=== PATIENT | male | born 1930 | race Caucasian/White ===

== ENCOUNTER → 2017-02-15 | Outpatient (CLI) | payer MEDICARE | LOC: MW.CHPS 08:00 | PROVIDERS: ATTEND Plastic Surgery | DX: L57.0 Actinic keratosis (principal); L82.1 Other seborrheic keratosis; G20 Parkinson's disease | CPT/HCPCS: 17000; 17003; 99202 ==

== ENCOUNTER 2017-12-03 20:46 | Inpatient (IN) | payer MEDICARE ==
[2017-12-03] MEDS ORDERED: methylPREDNISolone Sodium Succinate 125 MG/2 ML SDV IVPUSH ONE (20:51)
[2017-12-03] MEDS ORDERED: Albuterol/Ipratropium 3.0-0.5 MG/3 ML Neb Soln NEB ONE (20:51)
[2017-12-03] MEDS ORDERED: Sodium Chloride 0.9% 1,000 ML IV ONE (20:51)
--- NOTE | 2017-12-03 20:54 | EDM.PDOC ---
<Lit Rivera - Last Filed: 12/03/17 21:46> ED HPI GENERAL MEDICAL PROBLEM - General Stated Complaint: UNK Time Seen by Provider: 12/03/17 20:54 - History of Present Illness INITIAL COMMENTS - FREE TEXT/NARRATIVE: I have seen and examined the patient above Patient vessel jail apparently being treated for influenza increased temperatures over the last few days developing altered mental status, over the last few days, patient was started on Temodar flu Danitza Coma Scale roughly 8 on arrival Agree with physical exam above Assessment Hypoxia Hypernatremia Dehydration Renal insufficiency Chronic history of baseline Plan Continue normal saline and admit, I have added urine osmolality as well as serum osmolality Course - Vital Signs Last Recorded V/S: Last Vital Signs Temp 97.8 F 12/03/17 20:57 Pulse 105 H 12/03/17 20:57 Resp 25 H 12/03/17 20:57 BP 129/75 12/03/17 20:57 Pulse Ox 88 L 12/03/17 20:57 - Orders/Labs/Meds Orders: Active Orders 24 hr Category Date Time Status EKG 12 Lead [EKG Documentation Completion] [RC] STAT Care 12/03/17 21:11 Active RT Aerosol Therapy [RC] ASDIRECTED Care 12/03/17 20:52 Active Chest 1V Frontal [CR] Stat Exams 12/03/17 20:51 Taken Head wo Cont [CT] Stat Exams 12/03/17 20:53 Taken B-TYPE NATRIURETIC PEPTIDE,BNP [CHEM] Stat Lab 12/03/17 21:01 Received CKMB [CHEM] Stat Lab 12/03/17 21:01 Received CREATINE KINASE,CK [CHEM] Stat Lab 12/03/17 21:01 Received CULTURE BLOOD [BC] Stat Lab 12/03/17 20:52 Ordered CULTURE BLOOD [BC] Stat Lab 12/03/17 21:01 Received DRUG SCREEN, URINE [URCHEM] Stat Lab 12/03/17 21:11 Uncollected INFLUENZA A+B AG SCREEN [RM] Stat Lab 12/03/17 20:51 Uncollected OSMOLALITY - SERUM [REF] Stat Lab 12/03/17 21:01 Received OSMOLALITY - URINE Stat Lab 12/03/17 21:43 Ordered UA W/MICROSCOPIC [URIN] Stat Lab 12/03/17 20:51 Uncollected Sodium Chloride 0.9% [Normal Saline] 1,000 ml Med 12/03/17 21:00 Active IV ASDIRECTED Blood Culture x2 Reflex Set [OM.PC] Stat Oth 12/03/17 20:51 Ordered Medication Orders Sodium Chloride (Normal Saline) 1,000 mls @ 100 mls/hr IV ASDIRECTED GODWIN Last Admin: 12/03/17 21:30 Dose: 100 mls/hr Labs: Laboratory Tests 12/03/17 12/03/17 12/03/17 Range/Units 21:01 21:01 21:01 WBC 11.66 H (4.0-11.0) K/uL RBC 4.87 (4.50-5.90) M/uL Hgb 15.4 (13.0-17.0) g/dL Hct 51.0 H (38.0-50.0) % MCV 104.7 H (80.0-98.0) fL MCH 31.6 (27.0-32.0) pg MCHC 30.2 L (31.0-37.0) g/dL RDW Std Deviation 54.6 (28.0-62.0) fl RDW Coeff of Danny 14 (11.0-15.0) % Plt Count 100 L (150-400) K/uL MPV 12.50 H (7.40-12.00) fL Neut % (Auto) 76.6 (48.0-80.0) % Lymph % (Auto) 16.6 (16.0-40.0) % Perry % (Auto) 5.6 (0.0-15.0) % Eos % (Auto) 1.0 (0.0-7.0) % Baso % (Auto) 0.2 (0.0-1.5) % Neut # (Auto) 8.9 H (1.4-5.7) K/uL Lymph # (Auto) 1.9 (0.6-2.4) K/uL Perry # (Auto) 0.7 (0.0-0.8) K/uL Eos # (Auto) 0.1 (0.0-0.7) K/uL Baso # (Auto) 0.0 (0.0-0.1) K/uL Nucleated RBC % 0.2 /100WBC Nucleated RBCs # 0 K/uL INR 1.03 ABG pH (7.35-7.45) ABG pCO2 (35-45) mmHG ABG pO2 (75-100) mmHG ABG HCO3 (22-26) mEq/L ABG Total CO2 ABG Base Excess (-2.0-2.0) Sodium 165 H* (136-146) mmol/L Potassium 4.3 (3.5-5.1) mmol/L Chloride 126 H (98-110) mmol/L Carbon Dioxide 23 (21-31) mmol/L BUN 50 H (6.0-23.0) mg/dL Creatinine 3.1 H (0.6-1.5) mg/dL Est Cr Clr Drug Dosing TNP Estimated GFR (MDRD) 19.1 ml/min Glucose 292 H (60-110) mg/dL Calcium 9.3 (8.8-10.8) mg/dL Total Bilirubin 1.1 (0.1-1.5) mg/dL AST 20 (5-40) IU/L ALT < 6 L (8-54) IU/L Alkaline Phosphatase 90 (40-150) Ammonia (14-68) UG/DL Troponin I 0.10 (0.0-0.29) NG/ML Total Protein 7.2 (6.0-8.0) g/dL Albumin 3.8 (3.4-4.8) g/dL Globulin 3.4 (2.0-3.5) g/dL Albumin/Globulin Ratio 1.1 L (1.3-2.8) Ethyl Alcohol mg/dL 12/03/17 12/03/17 12/03/17 Range/Units 21:01 21:01 21:25 WBC (4.0-11.0) K/uL RBC (4.50-5.90) M/uL Hgb (13.0-17.0) g/dL Hct (38.0-50.0) % MCV (80.0-98.0) fL MCH (27.0-32.0) pg MCHC (31.0-37.0) g/dL RDW Std Deviation (28.0-62.0) fl RDW Coeff of Danny (11.0-15.0) % Plt Count (150-400) K/uL MPV (7.40-12.00) fL Neut % (Auto) (48.0-80.0) % Lymph % (Auto) (16.0-40.0) % Perry % (Auto) (0.0-15.0) % Eos % (Auto) (0.0-7.0) % Baso % (Auto) (0.0-1.5) % Neut # (Auto) (1.4-5.7) K/uL Lymph # (Auto) (0.6-2.4) K/uL Perry # (Auto) (0.0-0.8) K/uL Eos # (Auto) (0.0-0.7) K/uL Baso # (Auto) (0.0-0.1) K/uL Nucleated RBC % /100WBC Nucleated RBCs # K/uL INR ABG pH 7.394 (7.35-7.45) ABG pCO2 43 (35-45) mmHG ABG pO2 63 L (75-100) mmHG ABG HCO3 26 (22-26) mEq/L ABG Total CO2 23.0 ABG Base Excess 1.0 (-2.0-2.0) Sodium (136-146) mmol/L Potassium (3.5-5.1) mmol/L Chloride (98-110) mmol/L Carbon Dioxide (21-31) mmol/L BUN (6.0-23.0) mg/dL Creatinine (0.6-1.5) mg/dL Est Cr Clr Drug Dosing Estimated GFR (MDRD) ml/min Glucose (60-110) mg/dL Calcium (8.8-10.8) mg/dL Total Bilirubin (0.1-1.5) mg/dL AST (5-40) IU/L ALT (8-54) IU/L Alkaline Phosphatase (40-150) Ammonia 63 (14-68) UG/DL Troponin I (0.0-0.29) NG/ML Total Protein (6.0-8.0) g/dL Albumin (3.4-4.8) g/dL Globulin (2.0-3.5) g/dL Albumin/Globulin Ratio (1.3-2.8) Ethyl Alcohol < 10.0 mg/dL Meds: Medications Generic Name Dose Route Start Last Admin Trade Name Freq PRN Reason Stop Dose Admin Sodium Chloride 1,000 mls @ 100 mls/hr 12/03/17 21:00 12/03/17 21:30 Normal Saline IV 100 mls/hr ASDIRECTED GODWIN Administration Discontinued Medications Generic Name Dose Route Start Last Admin Trade Name Kecia PRN Reason Stop Dose Admin Albuterol/Ipratropium 3 ml 12/03/17 20:51 12/03/17 21:33 Duoneb 3.0-0.5 Mg/3 Ml NEB 12/03/17 20:52 3 ml ONETIME ONE Administration Sodium Chloride 1,000 mls @ 999 mls/hr 12/03/17 20:51 Normal Saline IV 12/03/17 21:51 STAT ONE Methylprednisolone Sodium Succinate 125 mg 12/03/17 20:51 12/03/17 21:31 Solu-Medrol IVPUSH 12/03/17 20:52 125 mg ONETIME ONE Administration Departure - Departure Disposition: Admitted As Inpatient 65 Clinical Impression: Hypernatremia, Dehydration, Hypoxemia - Discharge Information Referrals: Nikhil Vásquez MD [Primary Care Provider] - - My Orders Last 24 Hours: My Active Orders 12/03/17 20:51 Chest 1V Frontal [CR] Stat INFLUENZA A+B AG SCREEN [RM] Stat UA W/MICROSCOPIC [URIN] Stat Blood Culture x2 Reflex Set [OM.PC] Stat 12/03/17 20:52 RT Aerosol Therapy [RC] ASDIRECTED CULTURE BLOOD [BC] Stat 12/03/17 20:53 Head wo Cont [CT] Stat 12/03/17 21:00 Sodium Chloride 0.9% [Normal Saline] 1,000 ml IV ASDIRECTED 12/03/17 21:01 B-TYPE NATRIURETIC PEPTIDE,BNP [CHEM] Stat CULTURE BLOOD [BC] Stat 12/03/17 21:11 EKG 12 Lead [EKG Documentation Completion] [RC] STAT DRUG SCREEN, URINE [URCHEM] Stat - Assessment/Plan Last 24 Hours: My Active Orders 12/03/17 20:51 Chest 1V Frontal [CR] Stat INFLUENZA A+B AG SCREEN [RM] Stat UA W/MICROSCOPIC [URIN] Stat Blood Culture x2 Reflex Set [OM.PC] Stat 12/03/17 20:52 RT Aerosol Therapy [RC] ASDIRECTED CULTURE BLOOD [BC] Stat 12/03/17 20:53 Head wo Cont [CT] Stat 12/03/17 21:00 Sodium Chloride 0.9% [Normal Saline] 1,000 ml IV ASDIRECTED 12/03/17 21:01 B-TYPE NATRIURETIC PEPTIDE,BNP [CHEM] Stat CULTURE BLOOD [BC] Stat 12/03/17 21:11 EKG 12 Lead [EKG Documentation Completion] [RC] STAT DRUG SCREEN, URINE [URCHEM] Stat <Chadd Diaz E - Last Filed: 12/03/17 21:55> ED HPI GENERAL MEDICAL PROBLEM - General Source of Information: Reports: Patient History Limitations: Reports: No Limitations - History of Present Illness INITIAL COMMENTS - FREE TEXT/NARRATIVE: HISTORY AND PHYSICAL: History of present illness: Patient is an 87-year-old male who presents to the emergency room with complaints of decreased level of responsiveness, fever, and low oxygen saturation. Per the jail report the patient has had poor oral intake, last voided at 6 AM this morning. Last reported bowel movement was 11/30/2017. He has had a temperature of 100F and did take Tylenol 325 mg by mouth at 1930. No reported falls. Upon EMS arrival the oxygen was 85% on room air. EMS gave him a albuterol treatment and supplemental oxygen (NRB at 15L) which brought his oxygen up to 95 %. Blood sugar was 260. GCS 6 (2,2,2). Patient has a past medical history of Alzheimer's disease, heard, dementia hypertension, elevated cholesterol, Parkinson's, and depression. There are no previous electronic records available on this patient. Patient is a code level II withholding defibrillation/cardioversion, chest compressions, ventilation by mask, ET tube, mechanical ventilation. Review of systems: As per history of present illness and below otherwise all systems reviewed and negative. Past medical history: As per history of present illness and as reviewed below otherwise noncontributory. Surgical history: As per history of present illness and as reviewed below otherwise noncontributory. Social history: No reported history of drug or alcohol abuse. Family history: As per history of present illness and as reviewed below otherwise noncontributory. Physical exam: General: Patient is resting with his eyes closed, does respond to painful stimuli. Unsure of baseline as there are no previous notes. HEENT: Atraumatic, normocephalic, pupils sluggish but reactive bilat, negative for conjunctival pallor or scleral icterus, mucous membranes moist, throat clear , neck supple, nontender, trachea midline. Lungs: Wheezing and rhonchi noted to bilat lung amezcua, breath sounds equal bilaterally, chest nontender. Loose wet cough noted. Heart: Irregularly regular. Abdomen: Soft, nondistended, grimaces with palpation to RLQ and LLQ. Hyperactive bowel sounds. Negative for masses or hepatosplenomegaly. Negative for costovertebral tenderness. Pelvis: Stable nontender. Genitourinary: Deferred. Rectal: Deferred. Extremities: Atraumatic, withdrawls with painful stimuli. Neurovascular unremarkable. Neuro: Awake, alert, oriented. Cranial nerves II through XII unremarkable. Cerebellum unremarkable. Motor and sensory unremarkable throughout. Exam nonfocal. No previous EKG to compare, sinus tachycardia with RBBB. Reviewed by Dr Ojeda. Patient going down to CT for stat scanning. Negative head CT and chest x-ray. Patient does have a sodium 165, WBC of 11.6, elevated BUNs/creatinine. Vital signs are stable. Dr. Bernstein was consulted on this case. He is agreeable to admit this patient for inpatient treatment. Patient will be placed on telemetry. Diagnostics: CBC, CMP, troponin, EKG, chest x-ray, head CT, blood cultures, UA, influenza Therapeutics: IV fluid, Solu-Medrol, DuoNeb, oxygen, athletic monitor Impression: 1. Hypoxemia 2. Hypernatremia 3. Dehydration Plan: Inpatient admission to [facility] with telemetry Definitive disposition and diagnosis as appropriate pending reevaluation and review of above. Duration: Hour(s): Location: Reports: Generalized ED ROS GENERAL - Review of Systems Review Of Systems: ROS reveals no pertinent complaints other than HPI. ED EXAM, GENERAL - Physical Exam Exam: See Below (See dictation) Course - Vital Signs Last Recorded V/S: Last Vital Signs Temp 97.8 F 12/03/17 20:57 Pulse 105 H 12/03/17 20:57 Resp 25 H 12/03/17 20:57 BP 129/75 12/03/17 20:57 Pulse Ox 88 L 12/03/17 20:57 - Orders/Labs/Meds Labs: Laboratory Tests 12/03/17 12/03/17 12/03/17 Range/Units 21:01 21:01 21:01 WBC 11.66 H (4.0-11.0) K/uL RBC 4.87 (4.50-5.90) M/uL Hgb 15.4 (13.0-17.0) g/dL Hct 51.0 H (38.0-50.0) % MCV 104.7 H (80.0-98.0) fL MCH 31.6 (27.0-32.0) pg MCHC 30.2 L (31.0-37.0) g/dL RDW Std Deviation 54.6 (28.0-62.0) fl RDW Coeff of Danny 14 (11.0-15.0) % Plt Count 100 L (150-400) K/uL MPV 12.50 H (7.40-12.00) fL Neut % (Auto) 76.6 (48.0-80.0) % Lymph % (Auto) 16.6 (16.0-40.0) % Perry % (Auto) 5.6 (0.0-15.0) % Eos % (Auto) 1.0 (0.0-7.0) % Baso % (Auto) 0.2 (0.0-1.5) % Neut # (Auto) 8.9 H (1.4-5.7) K/uL Lymph # (Auto) 1.9 (0.6-2.4) K/uL Perry # (Auto) 0.7 (0.0-0.8) K/uL Eos # (Auto) 0.1 (0.0-0.7) K/uL Baso # (Auto) 0.0 (0.0-0.1) K/uL Nucleated RBC % 0.2 /100WBC Nucleated RBCs # 0 K/uL INR 1.03 ABG pH (7.35-7.45) ABG pCO2 (35-45) mmHG ABG pO2 (75-100) mmHG ABG HCO3 (22-26) mEq/L ABG Total CO2 ABG Base Excess (-2.0-2.0) Sodium 165 H* (136-146) mmol/L Potassium 4.3 (3.5-5.1) mmol/L Chloride 126 H (98-110) mmol/L Carbon Dioxide 23 (21-31) mmol/L BUN 50 H (6.0-23.0) mg/dL Creatinine 3.1 H (0.6-1.5) mg/dL Est Cr Clr Drug Dosing TNP Estimated GFR (MDRD) 19.1 ml/min Glucose 292 H (60-110) mg/dL Calcium 9.3 (8.8-10.8) mg/dL Total Bilirubin 1.1 (0.1-1.5) mg/dL AST 20 (5-40) IU/L ALT < 6 L (8-54) IU/L Alkaline Phosphatase 90 (40-150) Ammonia (14-68) UG/DL Troponin I 0.10 (0.0-0.29) NG/ML Total Protein 7.2 (6.0-8.0) g/dL Albumin 3.8 (3.4-4.8) g/dL Globulin 3.4 (2.0-3.5) g/dL Albumin/Globulin Ratio 1.1 L (1.3-2.8) Ethyl Alcohol mg/dL 12/03/17 12/03/17 12/03/17 Range/Units 21:01 21:01 21:25 WBC (4.0-11.0) K/uL RBC (4.50-5.90) M/uL Hgb (13.0-17.0) g/dL Hct (38.0-50.0) % MCV (80.0-98.0) fL MCH (27.0-32.0) pg MCHC (31.0-37.0) g/dL RDW Std Deviation (28.0-62.0) fl RDW Coeff of Danny (11.0-15.0) % Plt Count (150-400) K/uL MPV (7.40-12.00) fL Neut % (Auto) (48.0-80.0) % Lymph % (Auto) (16.0-40.0) % Perry % (Auto) (0.0-15.0) % Eos % (Auto) (0.0-7.0) % Baso % (Auto) (0.0-1.5) % Neut # (Auto) (1.4-5.7) K/uL Lymph # (Auto) (0.6-2.4) K/uL Perry # (Auto) (0.0-0.8) K/uL Eos # (Auto) (0.0-0.7) K/uL Baso # (Auto) (0.0-0.1) K/uL Nucleated RBC % /100WBC Nucleated RBCs # K/uL INR ABG pH 7.394 (7.35-7.45) ABG pCO2 43 (35-45) mmHG ABG pO2 63 L (75-100) mmHG ABG HCO3 26 (22-26) mEq/L ABG Total CO2 23.0 ABG Base Excess 1.0 (-2.0-2.0) Sodium (136-146) mmol/L Potassium (3.5-5.1) mmol/L Chloride (98-110) mmol/L Carbon Dioxide (21-31) mmol/L BUN (6.0-23.0) mg/dL Creatinine (0.6-1.5) mg/dL Est Cr Clr Drug Dosing Estimated GFR (MDRD) ml/min Glucose (60-110) mg/dL Calcium (8.8-10.8) mg/dL Total Bilirubin (0.1-1.5) mg/dL AST (5-40) IU/L ALT (8-54) IU/L Alkaline Phosphatase (40-150) Ammonia 63 (14-68) UG/DL Troponin I (0.0-0.29) NG/ML Total Protein (6.0-8.0) g/dL Albumin (3.4-4.8) g/dL Globulin (2.0-3.5) g/dL Albumin/Globulin Ratio (1.3-2.8) Ethyl Alcohol < 10.0 mg/dL Departure - Departure Time of Disposition: 21:54
[2017-12-03] MEDS ORDERED: Sodium Chloride 0.9% 1,000 ML IV SCH (21:00)
[2017-12-03 21:29] LABS: CHLORIDE,CL 126 mmol/L (98-110)
[2017-12-03 21:40] LABS: SODIUM,NA 165 mmol/L (136-146)
[2017-12-03] MEDS ORDERED: Ondansetron 4 MG/2 ML SDV IVPUSH PRN (22:57)
--- NOTE | 2017-12-03 23:09 | PCM.HP ---
H&P History of Present Illness - General Admit Problem/Dx: Admission Diagnosis/Problem Admission Diagnosis/Problem Hypernatremia - History of Present Illness Initial Comments - Free Text/Narative: 87 yo male with pmh of parkinson's disease and dementia who presents to the ED with altered mental status. Over the past few days patient has had a chest congestion and fever. He has not been drinking or eating much. Family at [place] requested evaluation at the ED. In the ED he was noted to have a sodium of 160 and creatinin of 3.1. According to family his is nonverbal and nonmobile at baseline but will eat when prompted. - Related Data Allergies/Adverse Reactions: Allergies Allergy/AdvReac Type Severity Reaction Status Date / Time cefuroxime Allergy Other Verified 12/03/17 21:58 Penicillins Allergy Other Verified 12/03/17 21:58 Home Medications: Home Meds Carboxymethylcellulose Sodium [Refresh Liquigel 1%] 1 drop EYEBOTH QID 12/03/17 [History] Donepezil [Aricept] 10 mg PO BEDTIME 12/03/17 [History] Erythromycin Base [Erythromycin 0.5% Ophth Oint] 1 gm EYEBOTH BEDTIME 12/03/17 [ History] Famotidine [Pepcid] 20 mg PO DAILY 12/03/17 [History] Memantine HCl [Namenda] 28 mg PO DAILY 12/03/17 [History] Multivitamin [Multivitamins] 1 cap PO DAILY 12/03/17 [History] Oseltamivir [Tamiflu] 30 mg PO BID 12/03/17 [History] Polyethylene Glycol 3350 [MiraLAX] 17 gm PO DAILY PRN 12/03/17 [History] Acetaminophen [Tylenol] 650 mg PO TID PRN 12/04/17 [History] Aspirin [Ecotrin] 81 mg PO DAILY 12/04/17 [History] Carbidopa/Levodopa [Carbidopa-Levodopa 25-100 Tab] 1.5 tab PO BID 12/04/17 [ History] Carbidopa/Levodopa [Carbidopa-Levodopa 25-100] 2 tab PO QAM 12/04/17 [History] Cholecalciferol (Vitamin D3) [Vitamin D3] 2,000 unit PO DAILY 12/04/17 [History] Citalopram [Citalopram HBr] 10 mg PO DAILY 12/04/17 [History] Cyanocobalamin (Vitamin B-12) [Vitamin B-12] 1,000 mg PO DAILY 12/04/17 [History ] Donepezil [Aricept] 5 mg PO DAILY 12/04/17 [History] H&P Review of Systems - Review of Systems: Review Of Systems: Unable To Obtain Exam - Exam Exam: See Below - Vital Signs Vital Signs: Last Vital Signs Temp 36.6 C 12/03/17 22:49 Pulse 101 H 12/03/17 22:49 Resp 22 H 12/03/17 22:49 BP 122/65 12/03/17 22:49 Pulse Ox 90 L 12/03/17 22:49 Weight: 83.9 kg - Exam General: Obtunded Neck: Supple, Trachea Midline Lungs: Decreased Breath Sounds Cardiovascular: Regular Rate, Regular Rhythm GI/Abdominal Exam: Normal Bowel Sounds, Soft, Non-Tender, No Distention Extremities: No Pedal Edema Skin: Warm, Dry, Intact - Patient Data Lab Results Last 24 hrs: Laboratory Results - last 24 hr 12/03/17 12/03/17 Range/Units 22:10 22:10 Urine Color YELLOW Urine Appearance CLOUDY Urine pH 5.5 (5.0-8.0) Ur Specific [place] 1.025 (1.001-1.035) Urine Protein 30 (NEGATIVE) mg/dL Urine Glucose (UA) NEGATIVE (NEGATIVE) mg/dL Urine Ketones TRACE H (NEGATIVE) mg/dL Urine Occult Blood MODERATE (NEGATIVE) Urine Nitrite NEGATIVE (NEGATIVE) Urine Bilirubin SMALL H (NEGATIVE) Urine Ictotest NEGATIVE Urine Urobilinogen 0.2 (<2.0) EU/dL Ur Leukocyte Esterase NEGATIVE (NEGATIVE) Urine RBC 4-8 (0-2/HPF) Urine WBC 0-1 (0-5/HPF) Ur Epithelial Cells NOT SEEN (NONE-FEW) Amorphous Sediment FEW (NEGATIVE) Urine Bacteria FEW (NEGATIVE) Urine Opiates Screen NEGATIVE (NEGATIVE) Ur Oxycodone Screen NEGATIVE (NEGATIVE) Urine Methadone Screen NEGATIVE (NEGATIVE) Ur Barbiturates Screen NEGATIVE (NEGATIVE) Ur Phencyclidine Scrn NEGATIVE (NEGATIVE) Ur Amphetamine Screen NEGATIVE (NEGATIVE) U Methamphetamines Scrn NEGATIVE (NEGATIVE) U Benzodiazepines Scrn NEGATIVE (NEGATIVE) U Cocaine Metab Screen NEGATIVE (NEGATIVE) U Marijuana (THC) Screen NEGATIVE (NEGATIVE) Result Diagrams: 12/06/17 05:09 12/06/17 05:09 José Miguel Results Last 24 hrs: Microbiology 12/03/17 22:00 Influenza Type A Antigen Screen - Final Nasopharyngeal Swab - Nare, Left NEGATIVE INFLUENZA A VIRUS AG Influenza Type B Antigen Screen - Final NEGATIVE INFLUENZA B VIRUS AG *Q Meaningful Use (ADM) - VTE *Q VTE Criteria *Q: - Stroke *Q Stroke Criteria *Q: - AMI *Q AMI Criteria *Q: Problem List Initiated/Reviewed/Updated: Yes Orders Last 24hrs: Active Orders 24 hr Category Date Time Status Antiembolic Devices [RC] PER UNIT ROUTINE Care 12/03/17 22:58 Ordered Oxygen Therapy [RC] PRN Care 12/03/17 22:57 Ordered VTE/DVT Education [RC] PER UNIT ROUTINE Care 12/03/17 22:57 Ordered Vital Signs [RC] Q4H Care 12/03/17 22:57 Ordered Clear Liquid Diet [DIET] Diet 12/03/17 Breakfast Ordered BASIC METABOLIC PANEL,BMP [CHEM] AM Lab 12/04/17 05:11 Ordered CBC WITH AUTO DIFF [HEME] AM Lab 12/04/17 05:11 Ordered CULTURE SPUTUM + SMEAR [RM] Stat Lab 12/03/17 22:57 Uncollected CULTURE URINE [RM] Stat Lab 12/03/17 22:57 Uncollected Heparin Sodium Med 12/04/17 09:00 Ordered 5,000 units SUBCUT Q12HR Levofloxacin/Dextrose 5%-Water [Levaquin in D5W 750 MG/ Med 12/03/17 23:15 Ordered 150 ML] 750 mg Premix Bag 1 bag IV Q48H Ondansetron [Zofran] Med 12/03/17 22:57 Ordered 4 mg IVPUSH Q4H PRN Oseltamivir [Tamiflu] Med 12/04/17 09:00 Ordered 30 mg PO DAILY Sequential Compression Device [OM.PC] Per Unit Routine Oth 12/03/17 22:57 Ordered Resuscitation Status Routine Resus Stat 12/03/17 22:57 Ordered Medication Orders Heparin Sodium (Porcine) (Heparin Sodium) 5,000 units SUBCUT Q12HR GODWIN Sodium Chloride (Normal Saline) 1,000 mls @ 100 mls/hr IV ASDIRECTED GODWIN Last Admin: 12/03/17 21:30 Dose: 100 mls/hr Levofloxacin/Dextrose 750 mg/ (Premix) 150 mls @ 100 mls/hr IV Q48H GODWIN Ondansetron HCl (Zofran) 4 mg IVPUSH Q4H PRN PRN Reason: Nausea Oseltamivir Phosphate (Tamiflu) 30 mg PO DAILY [facility] Assessment/Plan Comment:: 87 yo male with pmh of parkinson's dementia who presents with dehydration, acute kidney injury, hypernatremia and suspected influenza/pneumonia. We will treat with IV fluids, Levaquin and tamiflu.
[2017-12-03] MEDS ORDERED: Levofloxacin/Dextrose 5%-Water 750 MG in Premix Bag 1 BAG IV SCH (23:15)
[2017-12-04] MEDS: Sodium Chloride 0.45% 1,000 ML IV SCH ×2 (01:44→11:59)
[2017-12-04] MEDS: Vancomycin 1.25 GM in Sodium Chloride 0.9% 500 ML IV SCH (08:39)
[2017-12-04] MEDS ORDERED: Oseltamivir 30 MG Cap PO SCH (09:00)
[2017-12-04] MEDS: Heparin Sodium 5,000 Units/ML Vial SUBCUT SCH ×2 (11:03→21:07)
--- NOTE | 2017-12-04 11:27 | PCM.PN ---
- Review of Systems Systems Review Comment:: nonverbal, increase in thick oral secreations - Patient Data Vitals - Most Recent: Last Vital Signs Temp 37.6 C 12/04/17 11:00 Pulse 91 12/04/17 11:00 Resp 23 H 12/04/17 11:00 BP 125/60 12/04/17 11:00 Pulse Ox 97 12/04/17 11:00 Weight - Most Recent: 83.9 kg I&O - Last 24 Hours: Intake & Output 12/03/17 12/04/17 12/04/17 22:59 06:59 14:59 Intake Total 350 Output Total 175 Balance 175 Lab Results Last 24 Hours: Laboratory Results - last 24 hr 12/03/17 12/03/17 12/03/17 Range/Units 22:10 22:10 23:50 WBC (4.0-11.0) K/uL RBC (4.50-5.90) M/uL Hgb (13.0-17.0) g/dL Hct (38.0-50.0) % MCV (80.0-98.0) fL MCH (27.0-32.0) pg MCHC (31.0-37.0) g/dL RDW Std Deviation (28.0-62.0) fl RDW Coeff of Danny (11.0-15.0) % Plt Count (150-400) K/uL MPV (7.40-12.00) fL Neut % (Auto) (48.0-80.0) % Lymph % (Auto) (16.0-40.0) % [place] % (Auto) (0.0-15.0) % Eos % (Auto) (0.0-7.0) % Baso % (Auto) (0.0-1.5) % Neut # (Auto) (1.4-5.7) K/uL Lymph # (Auto) (0.6-2.4) K/uL [place] # (Auto) (0.0-0.8) K/uL Eos # (Auto) (0.0-0.7) K/uL Baso # (Auto) (0.0-0.1) K/uL Nucleated RBC % /100WBC Nucleated RBCs # K/uL Sodium 165 H* (136-146) mmol/L Potassium 4.6 (3.5-5.1) mmol/L Chloride 129 H (98-110) mmol/L Carbon Dioxide 18 L (21-31) mmol/L BUN 51 H (6.0-23.0) mg/dL Creatinine 3.2 H (0.6-1.5) mg/dL Est Cr Clr Drug Dosing 16.99 mL/min Estimated GFR (MDRD) 18.4 ml/min Glucose 321 H (60-110) mg/dL Calcium 9.1 (8.8-10.8) mg/dL Urine Color YELLOW Urine Appearance CLOUDY Urine pH 5.5 (5.0-8.0) Ur Specific [place] 1.025 (1.001-1.035) Urine Protein 30 (NEGATIVE) mg/dL Urine Glucose (UA) NEGATIVE (NEGATIVE) mg/dL Urine Ketones TRACE H (NEGATIVE) mg/dL Urine Occult Blood MODERATE (NEGATIVE) Urine Nitrite NEGATIVE (NEGATIVE) Urine Bilirubin SMALL H (NEGATIVE) Urine Ictotest NEGATIVE Urine Urobilinogen 0.2 (<2.0) EU/dL Ur Leukocyte Esterase NEGATIVE (NEGATIVE) Urine RBC 4-8 (0-2/HPF) Urine WBC 0-1 (0-5/HPF) Ur Epithelial Cells NOT SEEN (NONE-FEW) Amorphous Sediment FEW (NEGATIVE) Urine Bacteria FEW (NEGATIVE) Urine Opiates Screen NEGATIVE (NEGATIVE) Ur Oxycodone Screen NEGATIVE (NEGATIVE) Urine Methadone Screen NEGATIVE (NEGATIVE) Ur Barbiturates Screen NEGATIVE (NEGATIVE) Ur Phencyclidine Scrn NEGATIVE (NEGATIVE) Ur Amphetamine Screen NEGATIVE (NEGATIVE) U Methamphetamines Scrn NEGATIVE (NEGATIVE) U Benzodiazepines Scrn NEGATIVE (NEGATIVE) U Cocaine Metab Screen NEGATIVE (NEGATIVE) U Marijuana (THC) Screen NEGATIVE (NEGATIVE) 12/04/17 12/04/17 Range/Units 05:38 05:38 WBC 9.82 (4.0-11.0) K/uL RBC 4.50 (4.50-5.90) M/uL Hgb 14.4 (13.0-17.0) g/dL Hct 47.4 (38.0-50.0) % MCV 105.3 H (80.0-98.0) fL MCH 32.0 (27.0-32.0) pg MCHC 30.4 L (31.0-37.0) g/dL RDW Std Deviation 54.6 (28.0-62.0) fl RDW Coeff of Danny 14 (11.0-15.0) % Plt Count 93 L (150-400) K/uL MPV 13.20 H (7.40-12.00) fL Neut % (Auto) 92.1 H (48.0-80.0) % Lymph % (Auto) 6.9 L (16.0-40.0) % [place] % (Auto) 0.8 (0.0-15.0) % Eos % (Auto) 0.0 (0.0-7.0) % Baso % (Auto) 0.2 (0.0-1.5) % Neut # (Auto) 9.0 H (1.4-5.7) K/uL Lymph # (Auto) 0.7 (0.6-2.4) K/uL [place] # (Auto) 0.1 (0.0-0.8) K/uL Eos # (Auto) 0.0 (0.0-0.7) K/uL Baso # (Auto) 0.0 (0.0-0.1) K/uL Nucleated RBC % 0.0 /100WBC Nucleated RBCs # 0 K/uL Sodium 162 H* (136-146) mmol/L Potassium 4.9 (3.5-5.1) mmol/L Chloride 127 H (98-110) mmol/L Carbon Dioxide 19 L (21-31) mmol/L BUN 55 H (6.0-23.0) mg/dL Creatinine 3.1 H (0.6-1.5) mg/dL Est Cr Clr Drug Dosing 17.54 mL/min Estimated GFR (MDRD) 19.1 ml/min Glucose 426 H (60-110) mg/dL Calcium 8.7 L (8.8-10.8) mg/dL Urine Color Urine Appearance Urine pH (5.0-8.0) Ur Specific [place] (1.001-1.035) Urine Protein (NEGATIVE) mg/dL Urine Glucose (UA) (NEGATIVE) mg/dL Urine Ketones (NEGATIVE) mg/dL Urine Occult Blood (NEGATIVE) Urine Nitrite (NEGATIVE) Urine Bilirubin (NEGATIVE) Urine Ictotest Urine Urobilinogen (<2.0) EU/dL Ur Leukocyte Esterase (NEGATIVE) Urine RBC (0-2/HPF) Urine WBC (0-5/HPF) Ur Epithelial Cells (NONE-FEW) Amorphous Sediment (NEGATIVE) Urine Bacteria (NEGATIVE) Urine Opiates Screen (NEGATIVE) Ur Oxycodone Screen (NEGATIVE) Urine Methadone Screen (NEGATIVE) Ur Barbiturates Screen (NEGATIVE) Ur Phencyclidine Scrn (NEGATIVE) Ur Amphetamine Screen (NEGATIVE) U Methamphetamines Scrn (NEGATIVE) U Benzodiazepines Scrn (NEGATIVE) U Cocaine Metab Screen (NEGATIVE) U Marijuana (THC) Screen (NEGATIVE) José Miguel Results Last 24 Hours: Microbiology 12/03/17 22:00 Influenza Type A Antigen Screen - Final Nasopharyngeal Swab - Nare, Left NEGATIVE INFLUENZA A VIRUS AG Influenza Type B Antigen Screen - Final NEGATIVE INFLUENZA B VIRUS AG Med Orders - Current: Current Medications Heparin Sodium (Porcine) (Heparin Sodium) 5,000 units SUBCUT Q12HR [facility] Last Admin: 12/04/17 11:03 Dose: 5,000 units Sodium Chloride (Sodium Chloride 0.45%) 1,000 mls @ 100 mls/hr IV ASDIRECTED [facility] Last Admin: 12/04/17 01:44 Dose: 100 mls/hr Vancomycin HCl 1.25 gm/ Sodium (Chloride) 500 mls @ 333.333 mls/hr IV Q24H [facility] Last Admin: 12/04/17 08:39 Dose: 333.333 mls/hr Levofloxacin/Dextrose 500 mg/ (Premix) 100 mls @ 100 mls/hr IV Q48H [facility] Ondansetron HCl (Zofran) 4 mg IVPUSH Q4H PRN PRN Reason: Nausea Oseltamivir Phosphate (Oseltamivir Phosphate) 30 mg PO DAILY [facility] Vancomycin HCl (Pharmacy To Dose - Vancomycin) 1 dose .XX ASDIRECTED [facility] Discontinued Medications Albuterol/Ipratropium (Duoneb 3.0-0.5 Mg/3 Ml) 3 ml NEB ONETIME ONE Stop: 12/03/17 20:52 Last Admin: 12/03/17 21:33 Dose: 3 ml Sodium Chloride (Normal Saline) 1,000 mls @ 999 mls/hr IV STAT ONE Stop: 12/03/17 21:51 Last Admin: 12/04/17 00:06 Dose: Not Given Sodium Chloride (Normal Saline) 1,000 mls @ 100 mls/hr IV ASDIRECTED [facility] Last Infusion: 12/04/17 01:45 Dose: 100 mls/hr Levofloxacin/Dextrose 750 mg/ (Premix) 150 mls @ 100 mls/hr IV Q48H [facility] Last Infusion: 12/04/17 01:40 Dose: Infused Methylprednisolone Sodium Succinate (Solu-Medrol) 125 mg IVPUSH ONETIME ONE Stop: 12/03/17 20:52 Last Admin: 12/03/17 21:31 Dose: 125 mg Oseltamivir Phosphate (Tamiflu) 30 mg PO DAILY [facility] - Exam General: Obtunded Lungs: Decreased Breath Sounds, Rhonchi Cardiovascular: Regular Rate, Regular Rhythm GI/Abdominal Exam: Soft, Non-Tender, No Distention Extremities: No Pedal Edema Skin: Warm, Dry, Intact - Problem List Review Problem List Initiated/Reviewed/Updated: Yes - My Orders Last 24 Hours: My Active Orders 12/03/17 22:57 Oxygen Therapy [RC] PRN Vital Signs [RC] Q4H CULTURE SPUTUM + SMEAR [RM] Stat Ondansetron [Zofran] 4 mg IVPUSH Q4H PRN Sequential Compression Device [OM.PC] Per Unit Routine Resuscitation Status Routine 12/03/17 22:58 Antiembolic Devices [RC] PER UNIT ROUTINE 12/03/17 23:20 Telemetry Monitoring [Cardiac Monitoring] [RC] . DIRECTED 12/04/17 00:45 Sodium Chloride 0.45% 1,000 ml IV ASDIRECTED 12/04/17 03:43 CULTURE URINE [RM] Stat 12/04/17 07:30 CULTURE BLOOD [BC] Routine Vancomycin Pharmacy to Dose [Pharmacy to Dose - Vancomycin] 1 dose .XX ASDIRECTED 12/04/17 07:45 CULTURE BLOOD [BC] Routine 12/04/17 08:00 Vancomycin 1.25 gm Sodium Chloride 0.9% [Normal Saline] 500 ml IV Q24H 12/04/17 09:00 Heparin Sodium 5,000 units SUBCUT Q12HR Oseltamivir Phosphate 30 mg PO DAILY 12/05/17 21:00 Levofloxacin/Dextrose 5%-Water [Levaquin in D5W 500 MG/100 ML] 500 mg Premix Bag 1 bag IV Q48H - Plan Plan:: 87 yo male with pmh of parkinson's dementia admitted with gram positive bacteremia, pneumonia, and AQUILINO. Pneumonia: continue vancomycin, levaquin, and tamiflu following cultures AQUILINO/Hypernatremia: on /2 NS IV fluids
[2017-12-04] MEDS ORDERED: Bisacodyl 10 MG Supp RECTAL ONE (11:28)
[2017-12-04] MEDS ORDERED: Carbidopa/Levodopa 25-100 MG Tab PO SCH (11:30)
[2017-12-04] MEDS ORDERED: Bisacodyl 10 MG Supp ONE (13:53)
[2017-12-04] MEDS: Carboxymethylcellulose Sodium 0.5% Ophth Soln 0.4 ML UD Box of 30 EYEBOTH SCH ×2 (14:07→17:47)
[2017-12-04] MEDS: Insulin Aspart 100 Units/ML 3 ML Pen SUBCUT SCH (17:55)
[2017-12-04] MEDS: Dextrose 5% in Water 1,000 ML IV SCH (19:00)
[2017-12-04] MEDS ORDERED: Acetaminophen 325 MG Tab PO PRN (20:44)
[2017-12-04] MEDS: Albuterol/Ipratropium 3.0-0.5 MG/3 ML Neb Soln NEB PRN (21:07)
[2017-12-04] MEDS: Acetaminophen 650 MG Supp RECTAL PRN (21:07)
[2017-12-04] MEDS: Donepezil 5 MG Tab PO SCH (21:16)
[2017-12-04] MEDS: Oseltamivir Phosphate 30 MG Capsule PO SCH (21:16)
[2017-12-05] MEDS: Carboxymethylcellulose Sodium 0.5% Ophth Soln 0.4 ML UD Box of 30 EYEBOTH SCH ×4 (00:04→16:59)
[2017-12-05] MEDS: Dextrose 5% in Water 1,000 ML IV SCH ×2 (03:52→12:15)
[2017-12-05] MEDS: Albuterol/Ipratropium 3.0-0.5 MG/3 ML Neb Soln NEB PRN (06:09)
[2017-12-05] MEDS: Acetaminophen 650 MG Supp RECTAL PRN (06:09)
[2017-12-05] MEDS: Insulin Aspart 100 Units/ML 3 ML Pen SUBCUT SCH ×3 (06:29→16:59)
[2017-12-05] MEDS: Vancomycin 1.25 GM in Sodium Chloride 0.9% 500 ML IV SCH (08:50)
[2017-12-05] MEDS: Heparin Sodium 5,000 Units/ML Vial SUBCUT SCH ×2 (09:05→22:41)
[2017-12-05] MEDS: Citalopram 20 MG Tab PO SCH (09:05)
[2017-12-05] MEDS: Donepezil 5 MG Tab PO SCH ×2 (09:05→22:41)
[2017-12-05] MEDS: Oseltamivir Phosphate 30 MG Capsule PO SCH (09:05)
[2017-12-05] MEDS: Carbidopa/Levodopa 25-100 MG Tab PO SCH (09:06)
[2017-12-05] MEDS: NAMENDA XR 28 MG PO SCH (09:06)
[2017-12-05] MEDS: Meropenem 500 MG in Sodium Chloride 0.9% 100 ML IV SCH (11:40)
--- NOTE | 2017-12-05 14:40 | PCM.PN ---
- General Info Date of Service: 12/05/17 Subjective Update: Patient is nonverbal. History gathering is difficult. Family is surrounding the bedside, they are concerned about his decreased hydration status. They also asked questions about sepsis. Patient himself does not appear to be changed from yesterday's evaluation. No reported events from nursing. - Review of Systems General: Reports: Other (See history of present illness) - Patient Data Vitals - Most Recent: Last Vital Signs Temp 36.3 C 12/05/17 11:46 Pulse 76 12/05/17 11:46 Resp 22 H 12/05/17 11:46 BP 136/68 12/05/17 11:46 Pulse Ox 97 12/05/17 11:46 Weight - Most Recent: 83.9 kg I&O - Last 24 Hours: Intake & Output 12/04/17 12/05/17 12/05/17 22:59 06:59 14:59 Intake Total 1201 950 650 Output Total 200 250 Balance 1001 700 650 Lab Results Last 24 Hours: Laboratory Results - last 24 hr 12/04/17 12/04/17 12/04/17 Range/Units 15:53 16:56 17:51 WBC (4.0-11.0) K/uL RBC (4.50-5.90) M/uL Hgb (13.0-17.0) g/dL Hct (38.0-50.0) % MCV (80.0-98.0) fL MCH (27.0-32.0) pg MCHC (31.0-37.0) g/dL RDW Std Deviation (28.0-62.0) fl RDW Coeff of Danny (11.0-15.0) % Plt Count (150-400) K/uL MPV (7.40-12.00) fL Neut % (Auto) (48.0-80.0) % Lymph % (Auto) (16.0-40.0) % [place] % (Auto) (0.0-15.0) % Eos % (Auto) (0.0-7.0) % Baso % (Auto) (0.0-1.5) % Neut # (Auto) (1.4-5.7) K/uL Lymph # (Auto) (0.6-2.4) K/uL [place] # (Auto) (0.0-0.8) K/uL Eos # (Auto) (0.0-0.7) K/uL Baso # (Auto) (0.0-0.1) K/uL Nucleated RBC % /100WBC Nucleated RBCs # K/uL Sodium 163 H* (136-146) mmol/L Potassium 4.3 (3.5-5.1) mmol/L Chloride 127 H (98-110) mmol/L Carbon Dioxide 21 (21-31) mmol/L BUN 62 H (6.0-23.0) mg/dL Creatinine 3.3 H (0.6-1.5) mg/dL Est Cr Clr Drug Dosing 16.48 mL/min Estimated GFR (MDRD) 17.8 ml/min Glucose 397 H (60-110) mg/dL POC Glucose 297 H 258 H (60-110) mg/dL Calcium 8.4 L (8.8-10.8) mg/dL Magnesium (1.5-2.3) mEq/L 12/04/17 12/05/17 12/05/17 Range/Units 21:52 05:55 05:55 WBC 10.16 (4.0-11.0) K/uL RBC 4.02 L (4.50-5.90) M/uL Hgb 12.8 L (13.0-17.0) g/dL Hct 42.1 (38.0-50.0) % MCV 104.7 H (80.0-98.0) fL MCH 31.8 (27.0-32.0) pg MCHC 30.4 L (31.0-37.0) g/dL RDW Std Deviation 52.8 (28.0-62.0) fl RDW Coeff of Danny 14 (11.0-15.0) % Plt Count 89 L (150-400) K/uL MPV 13.30 H (7.40-12.00) fL Neut % (Auto) 77.2 (48.0-80.0) % Lymph % (Auto) 16.9 (16.0-40.0) % [place] % (Auto) 5.7 (0.0-15.0) % Eos % (Auto) 0.1 (0.0-7.0) % Baso % (Auto) 0.1 (0.0-1.5) % Neut # (Auto) 7.8 H (1.4-5.7) K/uL Lymph # (Auto) 1.7 (0.6-2.4) K/uL [place] # (Auto) 0.6 (0.0-0.8) K/uL Eos # (Auto) 0.0 (0.0-0.7) K/uL Baso # (Auto) 0.0 (0.0-0.1) K/uL Nucleated RBC % 0.0 /100WBC Nucleated RBCs # 0 K/uL Sodium 161 H* 160 H (136-146) mmol/L Potassium 4.2 4.1 (3.5-5.1) mmol/L Chloride 126 H 125 H (98-110) mmol/L Carbon Dioxide 23 23 (21-31) mmol/L BUN 63 H 61 H (6.0-23.0) mg/dL Creatinine 3.4 H 3.4 H (0.6-1.5) mg/dL Est Cr Clr Drug Dosing 16.00 16.00 mL/min Estimated GFR (MDRD) 17.2 17.2 ml/min Glucose 368 H 360 H (60-110) mg/dL POC Glucose (60-110) mg/dL Calcium 8.1 L 8.0 L (8.8-10.8) mg/dL Magnesium (1.5-2.3) mEq/L 12/05/17 12/05/17 12/05/17 Range/Units 05:55 06:02 11:59 WBC (4.0-11.0) K/uL RBC (4.50-5.90) M/uL Hgb (13.0-17.0) g/dL Hct (38.0-50.0) % MCV (80.0-98.0) fL MCH (27.0-32.0) pg MCHC (31.0-37.0) g/dL RDW Std Deviation (28.0-62.0) fl RDW Coeff of Danny (11.0-15.0) % Plt Count (150-400) K/uL MPV (7.40-12.00) fL Neut % (Auto) (48.0-80.0) % Lymph % (Auto) (16.0-40.0) % [place] % (Auto) (0.0-15.0) % Eos % (Auto) (0.0-7.0) % Baso % (Auto) (0.0-1.5) % Neut # (Auto) (1.4-5.7) K/uL Lymph # (Auto) (0.6-2.4) K/uL [place] # (Auto) (0.0-0.8) K/uL Eos # (Auto) (0.0-0.7) K/uL Baso # (Auto) (0.0-0.1) K/uL Nucleated RBC % /100WBC Nucleated RBCs # K/uL Sodium (136-146) mmol/L Potassium (3.5-5.1) mmol/L Chloride (98-110) mmol/L Carbon Dioxide (21-31) mmol/L BUN (6.0-23.0) mg/dL Creatinine (0.6-1.5) mg/dL Est Cr Clr Drug Dosing mL/min Estimated GFR (MDRD) ml/min Glucose (60-110) mg/dL POC Glucose 297 H 340 H (60-110) mg/dL Calcium (8.8-10.8) mg/dL Magnesium 1.8 (1.5-2.3) mEq/L José Miguel Results Last 24 Hours: Microbiology 12/04/17 07:45 Aerobic Blood Culture - Preliminary Blood NO GROWTH AFTER 1 DAY Anaerobic Blood Culture - Preliminary NO GROWTH AFTER 1 DAY 12/04/17 07:30 Aerobic Blood Culture - Preliminary Blood NO GROWTH AFTER 1 DAY Anaerobic Blood Culture - Preliminary NO GROWTH AFTER 1 DAY Med Orders - Current: Current Medications Acetaminophen (Tylenol) 650 mg PO Q6H PRN PRN Reason: Pain Acetaminophen (Tylenol) 650 mg RECTAL Q6H PRN PRN Reason: Pain/Fever Last Admin: 12/05/17 06:09 Dose: 650 mg Albuterol/Ipratropium (Duoneb 3.0-0.5 Mg/3 Ml) 3 ml NEB Q6HRRT PRN PRN Reason: Shortness of Breath Last Admin: 12/05/17 06:09 Dose: 3 ml Artificial Tears (Refresh Plus 0.5%) [address] [facility] Last Admin: 12/05/17 12:13 Dose: Not Given Carbidopa/Levodopa (Sinemet 25-100 Mg) [address] [facility] Last Admin: 12/05/17 09:06 Dose: Not Given Carbidopa/Levodopa (Sinemet 25-100 Mg) 1.[address] [facility] Citalopram Hydrobromide (Celexa) [address] [facility] Last Admin: 12/05/17 09:05 Dose: Not Given Donepezil HCl (Aricept) [address] [facility] Last Admin: 12/05/17 09:05 Dose: Not Given Donepezil HCl (Aricept) [address] [facility] Last Admin: 12/04/17 21:16 Dose: Not Given Heparin Sodium (Porcine) (Heparin Sodium) 5,[address] [facility] Last Admin: 12/05/17 09:05 Dose: Not Given Levofloxacin/Dextrose 500 mg/ (Premix) 100 mls @ 100 mls/hr IV Q48H [facility] Dextrose/Water (Dextrose 5% In Water) 1,000 mls @ 125 mls/hr IV ASDIRECTED [facility] Last Admin: 12/05/17 12:15 Dose: 100 mls/hr Vancomycin HCl 1.25 gm/ Sodium (Chloride) 250 mls @ 166.667 mls/hr IV Q24H [facility] Meropenem 500 mg/ Sodium (Chloride) 100 mls @ 200 mls/hr IV Q12H [facility] Last Admin: 12/05/17 11:40 Dose: 200 mls/hr Insulin Aspart (Novolog) [address] [facility] PRN Reason: Protocol Last Admin: 12/05/17 12:11 Dose: 4 units Ondansetron HCl (Zofran) 4 mg IVPUSH Q4H PRN PRN Reason: Nausea Last Admin: 12/04/17 21:06 Dose: 4 mg Oseltamivir Phosphate (Oseltamivir Phosphate) [address] [facility] Last Admin: 12/05/17 09:05 Dose: Not Given Namenda Xr 28 Mg [address] [facility] Last Admin: 12/05/17 09:06 Dose: Not Given Vancomycin HCl (Pharmacy To Dose - Vancomycin) [address] [facility] Discontinued Medications Albuterol/Ipratropium (Duoneb 3.0-0.5 Mg/3 Ml) 3 ml NEB ONETIME ONE Stop: 12/03/17 20:52 Last Admin: 12/03/17 21:33 Dose: 3 ml Bisacodyl (Dulcolax) 10 mg RECTAL ONETIME ONE Stop: 12/04/17 11:29 Last Admin: 12/04/17 13:58 Dose: 10 mg Bisacodyl (Dulcolax) Confirm Administered Dose 10 mg .ROUTE .STK-MED ONE Stop: 12/04/17 13:54 Last Admin: 12/04/17 16:16 Dose: Not Given Sodium Chloride (Normal Saline) 1,000 mls @ 999 mls/hr IV STAT ONE Stop: 12/03/17 21:51 Last Admin: 12/04/17 00:06 Dose: Not Given Sodium Chloride (Normal Saline) 1,000 mls @ 100 mls/hr IV ASDIRECTED [facility] Last Infusion: 12/04/17 01:45 Dose: 100 mls/hr Levofloxacin/Dextrose 750 mg/ (Premix) 150 mls @ 100 mls/hr IV Q48H [facility] Last Infusion: 12/04/17 01:40 Dose: Infused Sodium Chloride (Sodium Chloride 0.45%) 1,000 mls @ 100 mls/hr IV ASDIRECTED [facility] Last Admin: 12/04/17 11:59 Dose: 100 mls/hr Vancomycin HCl 1.25 gm/ Sodium (Chloride) 500 mls @ 333.333 mls/hr IV Q24H [facility] Last Admin: 12/05/17 08:50 Dose: 333.333 mls/hr Methylprednisolone Sodium Succinate (Solu-Medrol) 125 mg IVPUSH ONETIME ONE Stop: 12/03/17 20:52 Last Admin: 12/03/17 21:31 Dose: 125 mg Oseltamivir Phosphate (Tamiflu) 30 mg PO DAILY [facility] - Exam Quality Assessment: Supplemental Oxygen General: Lethargic HEENT: Pupils Equal Neck: Supple Lungs: Other (Decreased breath sounds) Cardiovascular: Regular Rate, Regular Rhythm Extremities: Normal Inspection, Normal Range of Motion, No Pedal Edema, Normal Capillary Refill Skin: Warm - Problem List Review Problem List Initiated/Reviewed/Updated: Yes - Plan Plan:: Assessment: #1. Gram-positive bacteremia #2. Pneumonia #3. Acute kidney injury #4. Hypernatremia #5. History of Parkinson's #6. T2DM Plan: #1. Follow-up on blood cultures. Continue IV vancomycin, Levaquin. Add IV meropenem. Continue Tamiflu #2. Repeat BMP to evaluate the hypernatremia this evening. #3. Continue IV D5W 125mL/h. Monitor for signs of fluid overload. #4. Increase sliding scale to medium dose. Continue checks.
--- NOTE | 2017-12-05 15:24 | CR ---
EXAM DATE: 12/03/17 PATIENT'S AGE: 87 Patient: CAROLINE NEWTON Facility: [place], [place] Site . Site : 1930 Study: XRay Chest [id number]/3/2018 9:20:20 PM Ordering Physician: Doctor Peter Final Report: INDICATION: faver/cough INDICATION: Fever. Cough. TECHNIQUE: Chest 1 view. COMPARISON: None FINDINGS: Cardiovascular and mediastinum: Heart size and vasculature are normal in caliber and appearance. Mediastinum is within normal limits. Lungs and pleural space: Lungs are clear. No sign of infiltrate or mass. No sign of pleural effusion. No pneumothorax. Bones and soft tissues: No significant findings. IMPRESSION: Lungs are clear. Dictated by Navjot Watters MD @ 12/03/2017 9:40:38 PM Dictated by: Navjot Watters MD @ 12/03/2017 21:40:43 (Electronic Signature) Report Signed by Proxy. JOHN
--- NOTE | 2017-12-05 15:25 | CT ---
EXAM DATE: 12/03/17 PATIENT'S AGE: 87 Patient: CAROLINE NEWTON Facility: [place], [place] Site . Site : 1930 Study: CT Head [id number]/3/[id number] 9:20:26 PM Ordering Physician: Doctor Peter Final Report: INDICATION: Lethargic, AMS HISTORY: Lethargic. Altered mental status. COMPARISON: None. TECHNIQUE: CT of the brain without contrast. Coronal/sagittal reconstruction images. FINDINGS: These images demonstrate no evidence for acute intracranial hemorrhage. There is no shift of midline structures. There is no mass effect. There is mild small vessel ischemic change in the periventricular white matter. There is diffuse cerebral and cerebellar volume loss. This is not unexpected given the patient`s age. The basilar cisterns are patent. There are no abnormal extra-axial fluid collections. There is no hyperdense MCA sign. Mastoid air cells of both temporal bones are clear. Pterygoid plates are intact. Degenerative changes at the atlantoaxial joint. The bones of the skullbase and calvaria are intact. IMPRESSION: 1. There is no acute intracranial hemorrhage, shift of midline structures, or mass effect. 2. No hyperdense MCA sign. 3. Volume loss with small vessel ischemic changes. This is expected given the patient`s age. Dictated by Navjot Watters MD @ 12/03/2017 9:44:48 PM Dictated by: Navjot Watters MD @ 12/03/2017 21:45:01 (Electronic Signature) Report Signed by Proxy. JOHN
[2017-12-05] MEDS ORDERED: Levofloxacin/Dextrose 5%-Water 500 MG in Premix Bag 1 BAG IV SCH (21:00)
[2017-12-06] MEDS: Meropenem 500 MG in Sodium Chloride 0.9% 100 ML IV SCH ×3 (00:54→23:21)
[2017-12-06] MEDS: Carboxymethylcellulose Sodium 0.5% Ophth Soln 0.4 ML UD Box of 30 EYEBOTH SCH ×5 (00:57→23:28)
[2017-12-06] MEDS: Insulin Aspart 100 Units/ML 3 ML Pen SUBCUT SCH ×3 (06:47→18:00)
[2017-12-06] MEDS: Donepezil 5 MG Tab PO SCH ×2 (08:40→23:35)
[2017-12-06] MEDS: Heparin Sodium 5,000 Units/ML Vial SUBCUT SCH ×2 (08:40→22:50)
[2017-12-06] MEDS: NAMENDA XR 28 MG PO SCH (08:40)
[2017-12-06] MEDS: Citalopram 20 MG Tab PO SCH (08:40)
[2017-12-06] MEDS: Carbidopa/Levodopa 25-100 MG Tab PO SCH (08:40)
[2017-12-06] MEDS: Oseltamivir Phosphate 30 MG Capsule PO SCH (08:40)
[2017-12-06] MEDS: Potassium Chloride 10 MEQ in Dextrose 5% in Water 1,000 ML IV SCH ×4 (11:46→23:20)
--- NOTE | 2017-12-06 16:49 | PCM.PN ---
- General Info Date of Service: 12/06/17 Subjective Update: 87-year-old male admitted for altered mental status secondary to pneumonia, acute kidney injury appears to be clinically improving. However, patient still is minimally arousable. He is not awake alert or oriented. He responds to stimuli. Family was seen at the bedside and discussed the case with them. He appears to be clinically improving with the decrease in his hypernatremia, has been afebrile, kidney function also appears to be improving. He however is not tolerating any oral intake. - Review of Systems General: Reports: Other (Unable to obtain secondary to altered mental status) - Patient Data Vitals - Most Recent: Last Vital Signs Temp 36.7 C 12/06/17 15:49 Pulse 65 12/06/17 15:49 Resp 22 H 12/06/17 15:49 BP 127/59 L 12/06/17 15:49 Pulse Ox 95 12/06/17 15:49 Weight - Most Recent: 83.9 kg I&O - Last 24 Hours: Intake & Output 12/06/17 12/06/17 12/06/17 06:59 14:59 22:59 Intake Total 952 250 50 Output Total 525 500 Balance 427 250 -450 Lab Results Last 24 Hours: Laboratory Results - last 24 hr 12/03/17 12/05/17 12/06/17 Range/Units 22:10 16:29 05:09 WBC 8.38 (4.0-11.0) K/uL RBC 3.89 L (4.50-5.90) M/uL Hgb 12.1 L (13.0-17.0) g/dL Hct 39.8 (38.0-50.0) % MCV 102.3 H (80.0-98.0) fL MCH 31.1 (27.0-32.0) pg MCHC 30.4 L (31.0-37.0) g/dL RDW Std Deviation 51.3 (28.0-62.0) fl RDW Coeff of Danny 14 (11.0-15.0) % Plt Count 80 L (150-400) K/uL MPV 13.10 H (7.40-12.00) fL Neut % (Auto) 70.6 (48.0-80.0) % Lymph % (Auto) 22.0 (16.0-40.0) % Brooks % (Auto) 4.9 (0.0-15.0) % Eos % (Auto) 2.4 (0.0-7.0) % Baso % (Auto) 0.1 (0.0-1.5) % Neut # (Auto) 5.9 H (1.4-5.7) K/uL Lymph # (Auto) 1.8 (0.6-2.4) K/uL Brooks # (Auto) 0.4 (0.0-0.8) K/uL Eos # (Auto) 0.2 (0.0-0.7) K/uL Baso # (Auto) 0.0 (0.0-0.1) K/uL Nucleated RBC % 0.0 /100WBC Nucleated RBCs # 0 K/uL Sodium (136-146) mmol/L Potassium (3.5-5.1) mmol/L Chloride (98-110) mmol/L Carbon Dioxide (21-31) mmol/L BUN (6.0-23.0) mg/dL Creatinine (0.6-1.5) mg/dL Est Cr Clr Drug Dosing mL/min Estimated GFR (MDRD) ml/min Glucose (60-110) mg/dL POC Glucose 298 H (60-110) mg/dL Calcium (8.8-10.8) mg/dL Magnesium (1.5-2.3) mEq/L Urine Osmolality 581 (300-900) mosm/kg Vancomycin Trough (5-15) ug/mL 12/06/17 12/06/17 12/06/17 Range/Units 05:09 05:09 06:08 WBC (4.0-11.0) K/uL RBC (4.50-5.90) M/uL Hgb (13.0-17.0) g/dL Hct (38.0-50.0) % MCV (80.0-98.0) fL MCH (27.0-32.0) pg MCHC (31.0-37.0) g/dL RDW Std Deviation (28.0-62.0) fl RDW Coeff of Danny (11.0-15.0) % Plt Count (150-400) K/uL MPV (7.40-12.00) fL Neut % (Auto) (48.0-80.0) % Lymph % (Auto) (16.0-40.0) % Brooks % (Auto) (0.0-15.0) % Eos % (Auto) (0.0-7.0) % Baso % (Auto) (0.0-1.5) % Neut # (Auto) (1.4-5.7) K/uL Lymph # (Auto) (0.6-2.4) K/uL Brooks # (Auto) (0.0-0.8) K/uL Eos # (Auto) (0.0-0.7) K/uL Baso # (Auto) (0.0-0.1) K/uL Nucleated RBC % /100WBC Nucleated RBCs # K/uL Sodium 152 H (136-146) mmol/L Potassium 3.9 (3.5-5.1) mmol/L Chloride 121 H (98-110) mmol/L Carbon Dioxide 23 (21-31) mmol/L BUN 45 H (6.0-23.0) mg/dL Creatinine 2.6 H (0.6-1.5) mg/dL Est Cr Clr Drug Dosing 20.92 mL/min Estimated GFR (MDRD) 23.4 ml/min Glucose 191 H (60-110) mg/dL POC Glucose 187 H (60-110) mg/dL Calcium 7.8 L (8.8-10.8) mg/dL Magnesium 2.0 (1.5-2.3) mEq/L Urine Osmolality (300-900) mosm/kg Vancomycin Trough (5-15) ug/mL 12/06/17 12/06/17 Range/Units 07:33 11:47 WBC (4.0-11.0) K/uL RBC (4.50-5.90) M/uL Hgb (13.0-17.0) g/dL Hct (38.0-50.0) % MCV (80.0-98.0) fL MCH (27.0-32.0) pg MCHC (31.0-37.0) g/dL RDW Std Deviation (28.0-62.0) fl RDW Coeff of Danny (11.0-15.0) % Plt Count (150-400) K/uL MPV (7.40-12.00) fL Neut % (Auto) (48.0-80.0) % Lymph % (Auto) (16.0-40.0) % Brooks % (Auto) (0.0-15.0) % Eos % (Auto) (0.0-7.0) % Baso % (Auto) (0.0-1.5) % Neut # (Auto) (1.4-5.7) K/uL Lymph # (Auto) (0.6-2.4) K/uL Brooks # (Auto) (0.0-0.8) K/uL Eos # (Auto) (0.0-0.7) K/uL Baso # (Auto) (0.0-0.1) K/uL Nucleated RBC % /100WBC Nucleated RBCs # K/uL Sodium (136-146) mmol/L Potassium (3.5-5.1) mmol/L Chloride (98-110) mmol/L Carbon Dioxide (21-31) mmol/L BUN (6.0-23.0) mg/dL Creatinine (0.6-1.5) mg/dL Est Cr Clr Drug Dosing mL/min Estimated GFR (MDRD) ml/min Glucose (60-110) mg/dL POC Glucose 186 H (60-110) mg/dL Calcium (8.8-10.8) mg/dL Magnesium (1.5-2.3) mEq/L Urine Osmolality (300-900) mosm/kg Vancomycin Trough 18.7 H (5-15) ug/mL José Miguel Results Last 24 Hours: Microbiology 12/03/17 22:10 Urine Culture - Final Urine, Catheterized MIXED ADRIANA <1000 CFU/ML 12/04/17 07:45 Aerobic Blood Culture - Preliminary Blood NO GROWTH AFTER 2 DAYS Anaerobic Blood Culture - Preliminary NO GROWTH AFTER 2 DAYS 12/04/17 07:30 Aerobic Blood Culture - Preliminary Blood NO GROWTH AFTER 2 DAYS Anaerobic Blood Culture - Preliminary NO GROWTH AFTER 2 DAYS Med Orders - Current: Current Medications Acetaminophen (Tylenol) 650 mg PO Q6H PRN PRN Reason: Pain Acetaminophen (Tylenol) 650 mg RECTAL Q6H PRN PRN Reason: Pain/Fever Last Admin: 12/05/17 06:09 Dose: 650 mg Albuterol/Ipratropium (Duoneb 3.0-0.5 Mg/3 Ml) 3 ml NEB Q6HRRT PRN PRN Reason: Shortness of Breath Last Admin: 12/05/17 06:09 Dose: 3 ml Artificial Tears (Refresh Plus 0.5%) 1 each EYEBOTH QID [facility] Last Admin: 12/06/17 11:45 Dose: 1 drop Carbidopa/Levodopa (Sinemet 25-100 Mg) 2 tab PO QAM [facility] Last Admin: 12/06/17 08:40 Dose: Not Given Carbidopa/Levodopa (Sinemet 25-100 Mg) 1.5 tab PO ASDIRECTED [facility] Citalopram Hydrobromide (Celexa) 10 mg PO DAILY [facility] Last Admin: 12/06/17 08:40 Dose: Not Given Donepezil HCl (Aricept) 5 mg PO DAILY [facility] Last Admin: 12/06/17 08:40 Dose: Not Given Donepezil HCl (Aricept) 10 mg PO BEDTIME [facility] Last Admin: 12/05/17 22:41 Dose: Not Given Heparin Sodium (Porcine) (Heparin Sodium) 5,000 units SUBCUT Q12HR [facility] Last Admin: 12/06/17 08:40 Dose: Not Given Vancomycin HCl 1.25 gm/ Sodium (Chloride) 250 mls @ 166.667 mls/hr IV Q24H [facility] Last Admin: 12/06/17 09:35 Dose: 166.667 mls/hr Meropenem 500 mg/ Sodium (Chloride) 100 mls @ 200 mls/hr IV Q12H [facility] Last Admin: 12/06/17 11:45 Dose: 200 mls/hr Levofloxacin/Dextrose 750 mg/ (Premix) 150 mls @ 150 mls/hr IV Q48H [facility] Potassium Chloride 10 meq/ (Dextrose/Water) 1,005 mls @ 125 mls/hr IV ASDIRECTED [facility] Last Admin: 12/06/17 11:46 Dose: 125 mls/hr Insulin Aspart (Novolog) 0 unit SUBCUT TIDAC [facility] PRN Reason: Protocol Last Admin: 12/06/17 11:47 Dose: 2 units Ondansetron HCl (Zofran) 4 mg IVPUSH Q4H PRN PRN Reason: Nausea Last Admin: 12/04/17 21:06 Dose: 4 mg Oseltamivir Phosphate (Oseltamivir Phosphate) 30 mg PO DAILY [facility] Last Admin: 12/06/17 08:40 Dose: Not Given Namenda Xr 28 Mg 1 each PO DAILY [facility] Last Admin: 12/06/17 08:40 Dose: Not Given Vancomycin HCl (Pharmacy To Dose - Vancomycin) 1 dose .XX ASDIRECTED [facility] Discontinued Medications Albuterol/Ipratropium (Duoneb 3.0-0.5 Mg/3 Ml) 3 ml NEB ONETIME ONE Stop: 12/03/17 20:52 Last Admin: 12/03/17 21:33 Dose: 3 ml Bisacodyl (Dulcolax) 10 mg RECTAL ONETIME ONE Stop: 12/04/17 11:29 Last Admin: 12/04/17 13:58 Dose: 10 mg Bisacodyl (Dulcolax) Confirm Administered Dose 10 mg .ROUTE .STK-MED ONE Stop: 12/04/17 13:54 Last Admin: 12/04/17 16:16 Dose: Not Given Sodium Chloride (Normal Saline) 1,000 mls @ 999 mls/hr IV STAT ONE Stop: 12/03/17 21:51 Last Admin: 12/04/17 00:06 Dose: Not Given Sodium Chloride (Normal Saline) 1,000 mls @ 100 mls/hr IV ASDIRECTED [facility] Last Infusion: 12/04/17 01:45 Dose: 100 mls/hr Levofloxacin/Dextrose 750 mg/ (Premix) 150 mls @ 100 mls/hr IV Q48H [facility] Last Infusion: 12/04/17 01:40 Dose: Infused Sodium Chloride (Sodium Chloride 0.45%) 1,000 mls @ 100 mls/hr IV ASDIRECTED [facility] Last Admin: 12/04/17 11:59 Dose: 100 mls/hr Vancomycin HCl 1.25 gm/ Sodium (Chloride) 500 mls @ 333.333 mls/hr IV Q24H [facility] Last Admin: 12/05/17 08:50 Dose: 333.333 mls/hr Levofloxacin/Dextrose 500 mg/ (Premix) 100 mls @ 100 mls/hr IV Q48H [facility] Last Admin: 12/05/17 22:34 Dose: 100 mls/hr Dextrose/Water (Dextrose 5% In Water) 1,000 mls @ 125 mls/hr IV ASDIRECTED [facility] Last Admin: 12/05/17 12:15 Dose: 100 mls/hr Potassium Chloride 30 meq/ (Dextrose/Water) 1,015 mls @ 100 mls/hr IV ASDIRECTED [facility] Last Admin: 12/06/17 06:47 Dose: 100 mls/hr Methylprednisolone Sodium Succinate (Solu-Medrol) 125 mg IVPUSH ONETIME ONE Stop: 12/03/17 20:52 Last Admin: 12/03/17 21:31 Dose: 125 mg Oseltamivir Phosphate (Tamiflu) 30 mg PO DAILY [facility] - Exam Quality Assessment: Supplemental Oxygen Neck: Supple Lungs: Decreased Breath Sounds Cardiovascular: Regular Rate, Regular Rhythm GI/Abdominal Exam: Normal Bowel Sounds, Soft, Non-Tender, No Organomegaly Peripheral Pulses: 2+: Dorsalis Pedis (L), Dorsalis Pedis (R) Skin: Warm - Problem List Review Problem List Initiated/Reviewed/Updated: Yes - Plan Plan:: Assessment: #1. Gram-positive bacteremia #2. Pneumonia #3. Acute kidney injury #4. Hypernatremia #5. History of Parkinson's #6. T2DM Plan: #1. Follow-up on blood cultures. Continue IV vancomycin, Levaquin. Add IV meropenem. Continue Tamiflu #2. Repeat BMP to evaluate the hypernatremia this evening. #3. Continue IV D5W w/10meq K 125mL/h. Monitor for signs of fluid overload.
[2017-12-07] MEDS: Carboxymethylcellulose Sodium 0.5% Ophth Soln 0.4 ML UD Box of 30 EYEBOTH SCH ×3 (07:03→17:17)
[2017-12-07] MEDS: Insulin Aspart 100 Units/ML 3 ML Pen SUBCUT SCH ×3 (07:03→17:17)
[2017-12-07] MEDS: Potassium Chloride 10 MEQ in Dextrose 5% in Water 1,000 ML IV SCH ×4 (09:00→18:16)
[2017-12-07] MEDS: Heparin Sodium 5,000 Units/ML Vial SUBCUT SCH ×2 (10:00→21:21)
[2017-12-07] MEDS: Donepezil 5 MG Tab PO SCH ×2 (10:00→21:21)
[2017-12-07] MEDS: Citalopram 20 MG Tab PO SCH (10:00)
[2017-12-07] MEDS: Carbidopa/Levodopa 25-100 MG Tab PO SCH ×3 (10:01→21:21)
[2017-12-07] MEDS: Oseltamivir Phosphate 30 MG Capsule PO SCH (10:01)
[2017-12-07] MEDS: NAMENDA XR 28 MG PO SCH (10:01)
--- NOTE | 2017-12-07 11:27 | PCM.PN ---
- General Info Date of Service: 12/07/17 Subjective Update: Patient is still minimally arousable. As per the family, he apparently did show signs of improvement in the sense that he was able to swallow a few bites of food. He still minimally arousable this morning. Otherwise, he does not appear in any acute distress. His O2 saturations appear to be improving. Still rather hypotensive. No new changes aside from those mentioned. Family has no other concerns. - Review of Systems General: Reports: Other (Unable to obtain secondary to altered mental status) - Patient Data Vitals - Most Recent: Last Vital Signs Temp 36.5 C 12/07/17 08:00 Pulse 65 12/07/17 08:00 Resp 18 12/07/17 08:00 BP 104/72 12/07/17 08:00 Pulse Ox 98 12/07/17 08:00 Weight - Most Recent: 83.9 kg I&O - Last 24 Hours: Intake & Output 12/06/17 12/07/17 12/07/17 22:59 06:59 14:59 Intake Total 50 1247 Output Total 500 600 Balance -450 647 Lab Results Last 24 Hours: Laboratory Results - last 24 hr 12/06/17 12/06/17 12/06/17 Range/Units 05:09 11:47 16:52 WBC (4.0-11.0) K/uL RBC (4.50-5.90) M/uL Hgb (13.0-17.0) g/dL Hct (38.0-50.0) % MCV (80.0-98.0) fL MCH (27.0-32.0) pg MCHC (31.0-37.0) g/dL RDW Std Deviation (28.0-62.0) fl RDW Coeff of Danny (11.0-15.0) % Plt Count (150-400) K/uL MPV (7.40-12.00) fL Neut % (Auto) (48.0-80.0) % Lymph % (Auto) (16.0-40.0) % Morton % (Auto) (0.0-15.0) % Eos % (Auto) (0.0-7.0) % Baso % (Auto) (0.0-1.5) % Neut # (Auto) (1.4-5.7) K/uL Lymph # (Auto) (0.6-2.4) K/uL Morton # (Auto) (0.0-0.8) K/uL Eos # (Auto) (0.0-0.7) K/uL Baso # (Auto) (0.0-0.1) K/uL Nucleated RBC % /100WBC Nucleated RBCs # K/uL Sodium (136-146) mmol/L Potassium (3.5-5.1) mmol/L Chloride (98-110) mmol/L Carbon Dioxide (21-31) mmol/L BUN (6.0-23.0) mg/dL Creatinine (0.6-1.5) mg/dL Est Cr Clr Drug Dosing mL/min Estimated GFR (MDRD) ml/min Glucose (60-110) mg/dL POC Glucose 186 H 261 H (60-110) mg/dL Calcium (8.8-10.8) mg/dL Magnesium 2.0 (1.5-2.3) mEq/L 12/07/17 12/07/17 12/07/17 Range/Units 05:51 05:51 07:02 WBC 6.63 (4.0-11.0) K/uL RBC 3.69 L (4.50-5.90) M/uL Hgb 11.6 L (13.0-17.0) g/dL Hct 36.8 L (38.0-50.0) % MCV 99.7 H (80.0-98.0) fL MCH 31.4 (27.0-32.0) pg MCHC 31.5 (31.0-37.0) g/dL RDW Std Deviation 47.7 (28.0-62.0) fl RDW Coeff of Danny 13 (11.0-15.0) % Plt Count 75 L (150-400) K/uL MPV 13.10 H (7.40-12.00) fL Neut % (Auto) 63.7 (48.0-80.0) % Lymph % (Auto) 27.1 (16.0-40.0) % Morton % (Auto) 5.3 (0.0-15.0) % Eos % (Auto) 3.9 (0.0-7.0) % Baso % (Auto) 0.0 (0.0-1.5) % Neut # (Auto) 4.2 (1.4-5.7) K/uL Lymph # (Auto) 1.8 (0.6-2.4) K/uL Morton # (Auto) 0.4 (0.0-0.8) K/uL Eos # (Auto) 0.3 (0.0-0.7) K/uL Baso # (Auto) 0.0 (0.0-0.1) K/uL Nucleated RBC % 0.0 /100WBC Nucleated RBCs # 0 K/uL Sodium 148 H (136-146) mmol/L Potassium 3.8 (3.5-5.1) mmol/L Chloride 118 H (98-110) mmol/L Carbon Dioxide 24 (21-31) mmol/L BUN 32 H (6.0-23.0) mg/dL Creatinine 2.2 H (0.6-1.5) mg/dL Est Cr Clr Drug Dosing 24.72 mL/min Estimated GFR (MDRD) 28.4 ml/min Glucose 257 H (60-110) mg/dL POC Glucose 217 H (60-110) mg/dL Calcium 7.5 L (8.8-10.8) mg/dL Magnesium (1.5-2.3) mEq/L 12/07/17 Range/Units 11:09 WBC (4.0-11.0) K/uL RBC (4.50-5.90) M/uL Hgb (13.0-17.0) g/dL Hct (38.0-50.0) % MCV (80.0-98.0) fL MCH (27.0-32.0) pg MCHC (31.0-37.0) g/dL RDW Std Deviation (28.0-62.0) fl RDW Coeff of Danny (11.0-15.0) % Plt Count (150-400) K/uL MPV (7.40-12.00) fL Neut % (Auto) (48.0-80.0) % Lymph % (Auto) (16.0-40.0) % Morton % (Auto) (0.0-15.0) % Eos % (Auto) (0.0-7.0) % Baso % (Auto) (0.0-1.5) % Neut # (Auto) (1.4-5.7) K/uL Lymph # (Auto) (0.6-2.4) K/uL Morton # (Auto) (0.0-0.8) K/uL Eos # (Auto) (0.0-0.7) K/uL Baso # (Auto) (0.0-0.1) K/uL Nucleated RBC % /100WBC Nucleated RBCs # K/uL Sodium (136-146) mmol/L Potassium (3.5-5.1) mmol/L Chloride (98-110) mmol/L Carbon Dioxide (21-31) mmol/L BUN (6.0-23.0) mg/dL Creatinine (0.6-1.5) mg/dL Est Cr Clr Drug Dosing mL/min Estimated GFR (MDRD) ml/min Glucose (60-110) mg/dL POC Glucose 168 H (60-110) mg/dL Calcium (8.8-10.8) mg/dL Magnesium (1.5-2.3) mEq/L José Miguel Results Last 24 Hours: Microbiology 12/04/17 07:45 Aerobic Blood Culture - Preliminary Blood NO GROWTH AFTER 3 DAYS Anaerobic Blood Culture - Preliminary NO GROWTH AFTER 3 DAYS 12/04/17 07:30 Aerobic Blood Culture - Preliminary Blood NO GROWTH AFTER 3 DAYS Anaerobic Blood Culture - Preliminary NO GROWTH AFTER 3 DAYS 12/03/17 22:10 Urine Culture - Final Urine, Catheterized MIXED ADRIANA <1000 CFU/ML Med Orders - Current: Current Medications Acetaminophen (Tylenol) 650 mg PO Q6H PRN PRN Reason: Pain Acetaminophen (Tylenol) 650 mg RECTAL Q6H PRN PRN Reason: Pain/Fever Last Admin: 12/05/17 06:09 Dose: 650 mg Albuterol/Ipratropium (Duoneb 3.0-0.5 Mg/3 Ml) 3 ml NEB Q6HRRT PRN PRN Reason: Shortness of Breath Last Admin: 12/05/17 06:09 Dose: 3 ml Artificial Tears (Refresh Plus 0.5%) 1 each EYEBOTH QID [facility] Last Admin: 12/07/17 07:03 Dose: 1 drop Carbidopa/Levodopa (Sinemet 25-100 Mg) 2 tab PO QAM [facility] Last Admin: 12/07/17 10:01 Dose: Not Given Carbidopa/Levodopa (Sinemet 25-100 Mg) 1.5 tab PO BID@1200,2100 [facility] Citalopram Hydrobromide (Celexa) 10 mg PO DAILY [facility] Last Admin: 12/07/17 10:00 Dose: Not Given Donepezil HCl (Aricept) 5 mg PO DAILY [facility] Last Admin: 12/07/17 10:00 Dose: Not Given Donepezil HCl (Aricept) 10 mg PO BEDTIME [facility] Last Admin: 12/06/17 23:35 Dose: 10 mg Heparin Sodium (Porcine) (Heparin Sodium) 5,000 units SUBCUT Q12HR [facility] Last Admin: 12/07/17 10:00 Dose: Not Given Vancomycin HCl 1.25 gm/ Sodium (Chloride) 250 mls @ 166.667 mls/hr IV Q24H [facility] Last Admin: 12/07/17 09:00 Dose: 166.667 mls/hr Meropenem 500 mg/ Sodium (Chloride) 100 mls @ 200 mls/hr IV Q12H [facility] Last Admin: 12/06/17 23:21 Dose: 200 mls/hr Levofloxacin/Dextrose 750 mg/ (Premix) 150 mls @ 150 mls/hr IV Q48H [facility] Potassium Chloride 10 meq/ (Dextrose/Water) 1,005 mls @ 125 mls/hr IV Q8H [facility] Last Admin: 12/07/17 09:00 Dose: 125 mls/hr Insulin Aspart (Novolog) 0 unit SUBCUT TIDAC [facility] PRN Reason: Protocol Last Admin: 12/07/17 07:03 Dose: 4 units Ondansetron HCl (Zofran) 4 mg IVPUSH Q4H PRN PRN Reason: Nausea Last Admin: 12/04/17 21:06 Dose: 4 mg Oseltamivir Phosphate (Oseltamivir Phosphate) 30 mg PO DAILY [facility] Last Admin: 12/07/17 10:01 Dose: Not Given Namenda Xr 28 Mg 1 each PO DAILY [facility] Last Admin: 12/07/17 10:01 Dose: Not Given Vancomycin HCl (Pharmacy To Dose - Vancomycin) 1 dose .XX ASDIRECTED [facility] Discontinued Medications Albuterol/Ipratropium (Duoneb 3.0-0.5 Mg/3 Ml) 3 ml NEB ONETIME ONE Stop: 12/03/17 20:52 Last Admin: 12/03/17 21:33 Dose: 3 ml Bisacodyl (Dulcolax) 10 mg RECTAL ONETIME ONE Stop: 12/04/17 11:29 Last Admin: 12/04/17 13:58 Dose: 10 mg Bisacodyl (Dulcolax) Confirm Administered Dose 10 mg .ROUTE .STK-MED ONE Stop: 12/04/17 13:54 Last Admin: 12/04/17 16:16 Dose: Not Given Carbidopa/Levodopa (Sinemet 25-100 Mg) 1.5 tab PO ASDIRECTED [facility] Sodium Chloride (Normal Saline) 1,000 mls @ 999 mls/hr IV STAT ONE Stop: 12/03/17 21:51 Last Admin: 12/04/17 00:06 Dose: Not Given Sodium Chloride (Normal Saline) 1,000 mls @ 100 mls/hr IV ASDIRECTED [facility] Last Infusion: 12/04/17 01:45 Dose: 100 mls/hr Levofloxacin/Dextrose 750 mg/ (Premix) 150 mls @ 100 mls/hr IV Q48H [facility] Last Infusion: 12/04/17 01:40 Dose: Infused Sodium Chloride (Sodium Chloride 0.45%) 1,000 mls @ 100 mls/hr IV ASDIRECTED [facility] Last Admin: 12/04/17 11:59 Dose: 100 mls/hr Vancomycin HCl 1.25 gm/ Sodium (Chloride) 500 mls @ 333.333 mls/hr IV Q24H [facility] Last Admin: 12/05/17 08:50 Dose: 333.333 mls/hr Levofloxacin/Dextrose 500 mg/ (Premix) 100 mls @ 100 mls/hr IV Q48H [facility] Last Admin: 12/05/17 22:34 Dose: 100 mls/hr Dextrose/Water (Dextrose 5% In Water) 1,000 mls @ 125 mls/hr IV ASDIRECTED [facility] Last Admin: 12/05/17 12:15 Dose: 100 mls/hr Potassium Chloride 30 meq/ (Dextrose/Water) 1,015 mls @ 100 mls/hr IV ASDIRECTED [facility] Last Admin: 12/06/17 06:47 Dose: 100 mls/hr Potassium Chloride 10 meq/ (Dextrose/Water) 1,005 mls @ 125 mls/hr IV ASDIRECTED [facility] Last Admin: 12/06/17 23:20 Dose: 125 mls/hr Methylprednisolone Sodium Succinate (Solu-Medrol) 125 mg IVPUSH ONETIME ONE Stop: 12/03/17 20:52 Last Admin: 12/03/17 21:31 Dose: 125 mg Oseltamivir Phosphate (Tamiflu) 30 mg PO DAILY [facility] - Exam Quality Assessment: Supplemental Oxygen General: Alert, Oriented HEENT: Pupils Equal Neck: Supple Lungs: Clear to Auscultation, Normal Respiratory Effort Cardiovascular: Regular Rate, Regular Rhythm GI/Abdominal Exam: Normal Bowel Sounds, Soft Peripheral Pulses: 2+: Posterior Tibial (L), Posterior Tibial (R) Skin: Warm - Problem List Review Problem List Initiated/Reviewed/Updated: Yes - Plan Plan:: Assessment: #1. Bacteremia positive for strep salivaris. Repeat blood cultures negative 3 days #2. Acute kidney injury improving #3. Hypernatremia improving #4. Altered mental status secondary to above along with history of dementia, Parkinson's #5. Type 2 diabetes #6. Hypotension Plan: #1. Continue IV fluids as it is #2. Discontinue vancomycin, meropenem. Continue levofloxacin #3. I anticipate that this patient will make a slow recovery. Anticipate discharge in 3-4 days.
[2017-12-07] MEDS ORDERED: Levofloxacin/Dextrose 5%-Water 750 MG in Premix Bag 1 BAG IV SCH (21:00)
[2017-12-08] MEDS: Carboxymethylcellulose Sodium 0.5% Ophth Soln 0.4 ML UD Box of 30 EYEBOTH SCH ×4 (00:51→18:01)
[2017-12-08] MEDS: Potassium Chloride 10 MEQ in Dextrose 5% in Water 1,000 ML IV SCH ×2 (03:47)
[2017-12-08] MEDS: Insulin Aspart 100 Units/ML 3 ML Pen SUBCUT SCH ×3 (07:37→18:09)
[2017-12-08] MEDS: Bisacodyl 10 MG Supp RECTAL PRN (09:32)
[2017-12-08] MEDS: Carbidopa/Levodopa 25-100 MG Tab PO SCH ×3 (09:33→21:59)
[2017-12-08] MEDS: Citalopram 20 MG Tab PO SCH (09:33)
[2017-12-08] MEDS: Oseltamivir Phosphate 30 MG Capsule PO SCH (09:33)
[2017-12-08] MEDS: Donepezil 5 MG Tab PO SCH ×2 (09:33→21:59)
[2017-12-08] MEDS: NAMENDA XR 28 MG PO SCH (09:33)
[2017-12-08] MEDS: Heparin Sodium 5,000 Units/ML Vial SUBCUT SCH ×2 (09:33→21:59)
[2017-12-08] MEDS: Sodium Chloride 0.45% 1,000 ML IV SCH ×2 (09:34→20:37)
--- NOTE | 2017-12-08 13:28 | PCM.PN ---
- General Info Date of Service: 12/08/17 Subjective Update: Patient's labs appear to be progressively improving. Hypernatremia has resolved , creatinine also decreasing. However, the patient is still minimally arousable. Family tells me that he was able to take a few bites of Jell-O last night. At the bedside this morning, he moaned secondary to sternal rub. Aside from the second get much out of him. - Review of Systems General: Reports: Other (Unable to obtain secondary to mental status) - Patient Data Vitals - Most Recent: Last Vital Signs Temp 36.4 C 12/08/17 11:53 Pulse 78 12/08/17 11:53 Resp 18 12/08/17 11:53 BP 120/58 L 12/08/17 11:53 Pulse Ox 95 12/08/17 11:53 Weight - Most Recent: 83.9 kg I&O - Last 24 Hours: Intake & Output 12/07/17 12/08/17 12/08/17 22:59 06:59 14:59 Intake Total 1235 35 800 Output Total 650 1025 Balance 585 -990 800 Lab Results Last 24 Hours: Laboratory Results - last 24 hr 12/07/17 12/08/17 12/08/17 Range/Units 16:20 05:47 05:47 WBC 6.89 (4.0-11.0) K/uL RBC 3.87 L (4.50-5.90) M/uL Hgb 12.5 L (13.0-17.0) g/dL Hct 37.6 L (38.0-50.0) % MCV 97.2 (80.0-98.0) fL MCH 32.3 H (27.0-32.0) pg MCHC 33.2 (31.0-37.0) g/dL RDW Std Deviation 45.7 (28.0-62.0) fl RDW Coeff of Danny 13 (11.0-15.0) % Plt Count 84 L (150-400) K/uL MPV 12.80 H (7.40-12.00) fL Neut % (Auto) 66.4 (48.0-80.0) % Lymph % (Auto) 23.8 (16.0-40.0) % [place] % (Auto) 5.5 (0.0-15.0) % Eos % (Auto) 4.2 (0.0-7.0) % Baso % (Auto) 0.1 (0.0-1.5) % Neut # (Auto) 4.6 (1.4-5.7) K/uL Lymph # (Auto) 1.6 (0.6-2.4) K/uL [place] # (Auto) 0.4 (0.0-0.8) K/uL Eos # (Auto) 0.3 (0.0-0.7) K/uL Baso # (Auto) 0.0 (0.0-0.1) K/uL Nucleated RBC % 0.0 /100WBC Nucleated RBCs # 0 K/uL Sodium 141 (136-146) mmol/L Potassium 4.2 (3.5-5.1) mmol/L Chloride 113 H (98-110) mmol/L Carbon Dioxide 21 (21-31) mmol/L BUN 23 (6.0-23.0) mg/dL Creatinine 1.8 H (0.6-1.5) mg/dL Est Cr Clr Drug Dosing 30.21 mL/min Estimated GFR (MDRD) 35.8 ml/min Glucose 214 H (60-110) mg/dL POC Glucose 214 H (60-110) mg/dL Calcium 7.6 L (8.8-10.8) mg/dL 12/08/17 Range/Units 06:33 WBC (4.0-11.0) K/uL RBC (4.50-5.90) M/uL Hgb (13.0-17.0) g/dL Hct (38.0-50.0) % MCV (80.0-98.0) fL MCH (27.0-32.0) pg MCHC (31.0-37.0) g/dL RDW Std Deviation (28.0-62.0) fl RDW Coeff of Danny (11.0-15.0) % Plt Count (150-400) K/uL MPV (7.40-12.00) fL Neut % (Auto) (48.0-80.0) % Lymph % (Auto) (16.0-40.0) % [place] % (Auto) (0.0-15.0) % Eos % (Auto) (0.0-7.0) % Baso % (Auto) (0.0-1.5) % Neut # (Auto) (1.4-5.7) K/uL Lymph # (Auto) (0.6-2.4) K/uL [place] # (Auto) (0.0-0.8) K/uL Eos # (Auto) (0.0-0.7) K/uL Baso # (Auto) (0.0-0.1) K/uL Nucleated RBC % /100WBC Nucleated RBCs # K/uL Sodium (136-146) mmol/L Potassium (3.5-5.1) mmol/L Chloride (98-110) mmol/L Carbon Dioxide (21-31) mmol/L BUN (6.0-23.0) mg/dL Creatinine (0.6-1.5) mg/dL Est Cr Clr Drug Dosing mL/min Estimated GFR (MDRD) ml/min Glucose (60-110) mg/dL POC Glucose 192 H (60-110) mg/dL Calcium (8.8-10.8) mg/dL José Miguel Results Last 24 Hours: Microbiology 12/04/17 07:45 Aerobic Blood Culture - Preliminary Blood NO GROWTH AFTER 4 DAYS Anaerobic Blood Culture - Preliminary NO GROWTH AFTER 4 DAYS 12/04/17 07:30 Aerobic Blood Culture - Preliminary Blood NO GROWTH AFTER 4 DAYS Anaerobic Blood Culture - Preliminary NO GROWTH AFTER 4 DAYS Med Orders - Current: Current Medications Acetaminophen (Tylenol) 650 mg PO Q6H PRN PRN Reason: Pain Acetaminophen (Tylenol) 650 mg RECTAL Q6H PRN PRN Reason: Pain/Fever Last Admin: 12/05/17 06:09 Dose: 650 mg Albuterol/Ipratropium (Duoneb 3.0-0.5 Mg/3 Ml) 3 ml NEB Q6HRRT PRN PRN Reason: Shortness of Breath Last Admin: 12/05/17 06:09 Dose: 3 ml Artificial Tears (Refresh Plus 0.5%) 1 each EYEBOTH QID [facility] Last Admin: 12/08/17 12:15 Dose: 1 drop Bisacodyl (Dulcolax) 10 mg RECTAL BID PRN PRN Reason: Constipation Last Admin: 12/08/17 09:32 Dose: 10 mg Carbidopa/Levodopa (Sinemet 25-100 Mg) 2 tab PO QAM [facility] Last Admin: 12/08/17 09:33 Dose: Not Given Carbidopa/Levodopa (Sinemet 25-100 Mg) 1.5 tab PO BID@1200,2100 [facility] Last Admin: 12/08/17 12:15 Dose: Not Given Citalopram Hydrobromide (Celexa) 10 mg PO DAILY [facility] Last Admin: 12/08/17 09:33 Dose: Not Given Donepezil HCl (Aricept) 5 mg PO DAILY [facility] Last Admin: 12/08/17 09:33 Dose: Not Given Donepezil HCl (Aricept) 10 mg PO BEDTIME [facility] Last Admin: 12/07/17 21:21 Dose: Not Given Heparin Sodium (Porcine) (Heparin Sodium) 5,000 units SUBCUT Q12HR [facility] Last Admin: 12/08/17 09:33 Dose: Not Given Levofloxacin/Dextrose 750 mg/ (Premix) 150 mls @ 150 mls/hr IV Q48H [facility] Last Admin: 12/07/17 21:29 Dose: 150 mls/hr Sodium Chloride (Sodium Chloride 0.45%) 1,000 mls @ 125 mls/hr IV ASDIRECTED [facility] Last Admin: 12/08/17 09:34 Dose: 125 mls/hr Insulin Aspart (Novolog) 0 unit SUBCUT TIDAC [facility] PRN Reason: Protocol Last Admin: 12/08/17 07:37 Dose: 2 units Ondansetron HCl (Zofran) 4 mg IVPUSH Q4H PRN PRN Reason: Nausea Last Admin: 12/04/17 21:06 Dose: 4 mg Oseltamivir Phosphate (Oseltamivir Phosphate) 30 mg PO DAILY [facility] Last Admin: 12/08/17 09:33 Dose: Not Given Namenda Xr 28 Mg 1 each PO DAILY [facility] Last Admin: 12/08/17 09:33 Dose: Not Given Discontinued Medications Albuterol/Ipratropium (Duoneb 3.0-0.5 Mg/3 Ml) 3 ml NEB ONETIME ONE Stop: 12/03/17 20:52 Last Admin: 12/03/17 21:33 Dose: 3 ml Bisacodyl (Dulcolax) 10 mg RECTAL ONETIME ONE Stop: 12/04/17 11:29 Last Admin: 12/04/17 13:58 Dose: 10 mg Bisacodyl (Dulcolax) Confirm Administered Dose 10 mg .ROUTE .STK-MED ONE Stop: 12/04/17 13:54 Last Admin: 12/04/17 16:16 Dose: Not Given Carbidopa/Levodopa (Sinemet 25-100 Mg) 1.5 tab PO ASDIRECTED [facility] Sodium Chloride (Normal Saline) 1,000 mls @ 999 mls/hr IV STAT ONE Stop: 12/03/17 21:51 Last Admin: 12/04/17 00:06 Dose: Not Given Sodium Chloride (Normal Saline) 1,000 mls @ 100 mls/hr IV ASDIRECTED [facility] Last Infusion: 12/04/17 01:45 Dose: 100 mls/hr Levofloxacin/Dextrose 750 mg/ (Premix) 150 mls @ 100 mls/hr IV Q48H [facility] Last Infusion: 12/04/17 01:40 Dose: Infused Sodium Chloride (Sodium Chloride 0.45%) 1,000 mls @ 100 mls/hr IV ASDIRECTED [facility] Last Admin: 12/04/17 11:59 Dose: 100 mls/hr Vancomycin HCl 1.25 gm/ Sodium (Chloride) 500 mls @ 333.333 mls/hr IV Q24H [facility] Last Admin: 12/05/17 08:50 Dose: 333.333 mls/hr Levofloxacin/Dextrose 500 mg/ (Premix) 100 mls @ 100 mls/hr IV Q48H [facility] Last Admin: 12/05/17 22:34 Dose: 100 mls/hr Dextrose/Water (Dextrose 5% In Water) 1,000 mls @ 125 mls/hr IV ASDIRECTED [facility] Last Admin: 12/05/17 12:15 Dose: 100 mls/hr Vancomycin HCl 1.25 gm/ Sodium (Chloride) 250 mls @ 166.667 mls/hr IV Q24H [facility] Last Admin: 12/07/17 09:00 Dose: 166.667 mls/hr Meropenem 500 mg/ Sodium (Chloride) 100 mls @ 200 mls/hr IV Q12H [facility] Last Admin: 12/06/17 23:21 Dose: 200 mls/hr Potassium Chloride 30 meq/ (Dextrose/Water) 1,015 mls @ 100 mls/hr IV ASDIRECTED [facility] Last Admin: 12/06/17 06:47 Dose: 100 mls/hr Potassium Chloride 10 meq/ (Dextrose/Water) 1,005 mls @ 125 mls/hr IV ASDIRECTED [facility] Last Admin: 12/06/17 23:20 Dose: 125 mls/hr Potassium Chloride 10 meq/ (Dextrose/Water) 1,005 mls @ 125 mls/hr IV Q8H [facility] Last Admin: 12/08/17 03:47 Dose: 125 mls/hr Methylprednisolone Sodium Succinate (Solu-Medrol) 125 mg IVPUSH ONETIME ONE Stop: 12/03/17 20:52 Last Admin: 12/03/17 21:31 Dose: 125 mg Oseltamivir Phosphate (Tamiflu) 30 mg PO DAILY [facility] Vancomycin HCl (Pharmacy To Dose - Vancomycin) 1 dose .XX ASDIRECTED [facility] - Exam General: Obtunded HEENT: Other (Keeps eyes closed, won't open them even with applied force) Lungs: Clear to Auscultation, Normal Respiratory Effort Cardiovascular: Regular Rate, Regular Rhythm GI/Abdominal Exam: Normal Bowel Sounds, Soft Extremities: Other (Trace pedal edema) Peripheral Pulses: 1+: Posterior Tibial (L), Posterior Tibial (R) - Problem List Review Problem List Initiated/Reviewed/Updated: Yes - My Orders Last 24 Hours: My Active Orders 12/08/17 08:15 Sodium Chloride 0.45% 1,000 ml IV ASDIRECTED - Plan Plan:: Assessment: #1. 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 Hypernatremia resolved #3. Acute kidney injury improving #4. Poor oral intake secondary to #1 Plan: #1. Switch to half-normal saline at 100 mL an hour. I want to decrease the rate with concerns of fluid overload. #2. Continue IV Levaquin #3. At this point, the patient's progress in terms of mental status has been minimal. He seems to respond a little more to sternal rub than he has in previous days. However, I did go over with the family that given his history of Parkinson's, that there is a possibility that this could be his new baseline. We are ideally anticipating a recovery back to baseline. However, there is a possibility that won't be the case. So, I did go over possible tube feeds with the family is currently only thing he is taking in is the IV fluids. Daughter of the patient is reluctant about this. We will talk more with the family about this scenario as it may be the case in the upcoming few days.
[2017-12-09] MEDS: Carboxymethylcellulose Sodium 0.5% Ophth Soln 0.4 ML UD Box of 30 EYEBOTH SCH ×4 (00:05→17:19)
[2017-12-09] MEDS: Sodium Chloride 0.45% 1,000 ML IV SCH ×2 (04:44→14:04)
[2017-12-09] MEDS: Insulin Aspart 100 Units/ML 3 ML Pen SUBCUT SCH ×3 (06:30→17:54)
[2017-12-09] MEDS: Donepezil 5 MG Tab PO SCH ×2 (09:00→20:36)
[2017-12-09] MEDS: Oseltamivir Phosphate 30 MG Capsule PO SCH (09:00)
[2017-12-09] MEDS: Citalopram 20 MG Tab PO SCH (09:00)
[2017-12-09] MEDS: Carbidopa/Levodopa 25-100 MG Tab PO SCH ×3 (09:01→20:36)
[2017-12-09] MEDS: NAMENDA XR 28 MG PO SCH (09:01)
[2017-12-09] MEDS: Heparin Sodium 5,000 Units/ML Vial SUBCUT SCH ×2 (09:02→20:35)
--- NOTE | 2017-12-09 14:26 | PCM.PN ---
- General Info Date of Service: 12/09/17 Admission Dx/Problem (Free Text): Patient continues to be very difficult to arouse not showing much signs of improvement. 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 He is minimally arousable to voice and sternal rub. No new reported events from nursing. - Review of Systems General: Reports: Other (Unable to obtain secondary to mental status) - Patient Data Vitals - Most Recent: Last Vital Signs Temp 37.1 C 12/09/17 12:00 Pulse 61 12/09/17 12:00 Resp 20 12/09/17 12:00 BP 111/53 L 12/09/17 12:00 Pulse Ox 95 12/09/17 12:00 Weight - Most Recent: 83.9 kg I&O - Last 24 Hours: Intake & Output 12/08/17 12/09/17 12/09/17 22:59 06:59 14:59 Intake Total 30 1040 Output Total 930 1350 Balance -900 -310 Lab Results Last 24 Hours: Laboratory Results - last 24 hr 12/08/17 12/08/17 12/08/17 Range/Units 11:23 12:19 16:21 WBC (4.0-11.0) K/uL RBC (4.50-5.90) M/uL Hgb (13.0-17.0) g/dL Hct (38.0-50.0) % MCV (80.0-98.0) fL MCH (27.0-32.0) pg MCHC (31.0-37.0) g/dL RDW Std Deviation (28.0-62.0) fl RDW Coeff of Danny (11.0-15.0) % Plt Count (150-400) K/uL MPV (7.40-12.00) fL Neut % (Auto) (48.0-80.0) % Lymph % (Auto) (16.0-40.0) % [place] % (Auto) (0.0-15.0) % Eos % (Auto) (0.0-7.0) % Baso % (Auto) (0.0-1.5) % Neut # (Auto) (1.4-5.7) K/uL Lymph # (Auto) (0.6-2.4) K/uL [place] # (Auto) (0.0-0.8) K/uL Eos # (Auto) (0.0-0.7) K/uL Baso # (Auto) (0.0-0.1) K/uL Nucleated RBC % /100WBC Nucleated RBCs # K/uL Sodium (136-146) mmol/L Potassium (3.5-5.1) mmol/L Chloride (98-110) mmol/L Carbon Dioxide (21-31) mmol/L BUN (6.0-23.0) mg/dL Creatinine (0.6-1.5) mg/dL Est Cr Clr Drug Dosing mL/min Estimated GFR (MDRD) ml/min Glucose (60-110) mg/dL POC Glucose 206 H 190 H 180 H (60-110) mg/dL Calcium (8.8-10.8) mg/dL 12/09/17 12/09/17 12/09/17 Range/Units 06:26 07:18 07:18 WBC 7.49 (4.0-11.0) K/uL RBC 4.11 L (4.50-5.90) M/uL Hgb 13.0 (13.0-17.0) g/dL Hct 39.3 (38.0-50.0) % MCV 95.6 (80.0-98.0) fL MCH 31.6 (27.0-32.0) pg MCHC 33.1 (31.0-37.0) g/dL RDW Std Deviation 45.0 (28.0-62.0) fl RDW Coeff of Danny 13 (11.0-15.0) % Plt Count 88 L (150-400) K/uL MPV 12.60 H (7.40-12.00) fL Neut % (Auto) 65.0 (48.0-80.0) % Lymph % (Auto) 24.0 (16.0-40.0) % [place] % (Auto) 7.6 (0.0-15.0) % Eos % (Auto) 3.3 (0.0-7.0) % Baso % (Auto) 0.1 (0.0-1.5) % Neut # (Auto) 4.9 (1.4-5.7) K/uL Lymph # (Auto) 1.8 (0.6-2.4) K/uL [place] # (Auto) 0.6 (0.0-0.8) K/uL Eos # (Auto) 0.3 (0.0-0.7) K/uL Baso # (Auto) 0.0 (0.0-0.1) K/uL Nucleated RBC % 0.0 /100WBC Nucleated RBCs # 0 K/uL Sodium 145 (136-146) mmol/L Potassium 4.3 (3.5-5.1) mmol/L Chloride 115 H (98-110) mmol/L Carbon Dioxide 22 (21-31) mmol/L BUN 19 (6.0-23.0) mg/dL Creatinine 1.7 H (0.6-1.5) mg/dL Est Cr Clr Drug Dosing 31.99 mL/min Estimated GFR (MDRD) 38.2 ml/min Glucose 151 H (60-110) mg/dL POC Glucose 127 H (60-110) mg/dL Calcium 8.0 L (8.8-10.8) mg/dL José Miguel Results Last 24 Hours: Microbiology 12/04/17 07:45 Aerobic Blood Culture - Final Blood NO GROWTH AFTER 5 DAYS Anaerobic Blood Culture - Final NO GROWTH AFTER 5 DAYS 12/04/17 07:30 Aerobic Blood Culture - Final Blood NO GROWTH AFTER 5 DAYS Anaerobic Blood Culture - Final NO GROWTH AFTER 5 DAYS Med Orders - Current: Current Medications Acetaminophen (Tylenol) 650 mg PO Q6H PRN PRN Reason: Pain Acetaminophen (Tylenol) 650 mg RECTAL Q6H PRN PRN Reason: Pain/Fever Last Admin: 12/05/17 06:09 Dose: 650 mg Albuterol/Ipratropium (Duoneb 3.0-0.5 Mg/3 Ml) 3 ml NEB Q6HRRT PRN PRN Reason: Shortness of Breath Last Admin: 12/05/17 06:09 Dose: 3 ml Artificial Tears (Refresh Plus 0.5%) 1 each EYEBOTH QID [facility] Last Admin: 12/09/17 11:54 Dose: 1 drop Bisacodyl (Dulcolax) 10 mg RECTAL BID PRN PRN Reason: Constipation Last Admin: 12/08/17 09:32 Dose: 10 mg Carbidopa/Levodopa (Sinemet 25-100 Mg) 2 tab PO QAM [facility] Last Admin: 12/09/17 09:01 Dose: Not Given Carbidopa/Levodopa (Sinemet 25-100 Mg) 1.5 tab PO BID@1200,2100 [facility] Last Admin: 12/09/17 11:48 Dose: Not Given Citalopram Hydrobromide (Celexa) 10 mg PO DAILY [facility] Last Admin: 12/09/17 09:00 Dose: Not Given Donepezil HCl (Aricept) 5 mg PO DAILY [facility] Last Admin: 12/09/17 09:00 Dose: Not Given Donepezil HCl (Aricept) 10 mg PO BEDTIME [facility] Last Admin: 12/08/17 21:59 Dose: Not Given Heparin Sodium (Porcine) (Heparin Sodium) 5,000 units SUBCUT Q12HR [facility] Last Admin: 12/09/17 09:02 Dose: Not Given Levofloxacin/Dextrose 750 mg/ (Premix) 150 mls @ 150 mls/hr IV Q48H [facility] Last Admin: 12/07/17 21:29 Dose: 150 mls/hr Sodium Chloride (Sodium Chloride 0.45%) 1,000 mls @ 100 mls/hr IV ASDIRECTED [facility] Last Admin: 12/09/17 14:04 Dose: 100 mls/hr Insulin Aspart (Novolog) 0 unit SUBCUT TIDAC [facility] PRN Reason: Protocol Last Admin: 12/09/17 11:39 Dose: Not Given Ondansetron HCl (Zofran) 4 mg IVPUSH Q4H PRN PRN Reason: Nausea Last Admin: 12/04/17 21:06 Dose: 4 mg Oseltamivir Phosphate (Oseltamivir Phosphate) 30 mg PO DAILY [facility] Last Admin: 12/09/17 09:00 Dose: Not Given Namenda Xr 28 Mg 1 each PO DAILY [facility] Last Admin: 12/09/17 09:01 Dose: Not Given Discontinued Medications Albuterol/Ipratropium (Duoneb 3.0-0.5 Mg/3 Ml) 3 ml NEB ONETIME ONE Stop: 12/03/17 20:52 Last Admin: 12/03/17 21:33 Dose: 3 ml Bisacodyl (Dulcolax) 10 mg RECTAL ONETIME ONE Stop: 12/04/17 11:29 Last Admin: 12/04/17 13:58 Dose: 10 mg Bisacodyl (Dulcolax) Confirm Administered Dose 10 mg .ROUTE .STK-MED ONE Stop: 12/04/17 13:54 Last Admin: 12/04/17 16:16 Dose: Not Given Carbidopa/Levodopa (Sinemet 25-100 Mg) 1.5 tab PO ASDIRECTED [facility] Sodium Chloride (Normal Saline) 1,000 mls @ 999 mls/hr IV STAT ONE Stop: 12/03/17 21:51 Last Admin: 12/04/17 00:06 Dose: Not Given Sodium Chloride (Normal Saline) 1,000 mls @ 100 mls/hr IV ASDIRECTED [facility] Last Infusion: 12/04/17 01:45 Dose: 100 mls/hr Levofloxacin/Dextrose 750 mg/ (Premix) 150 mls @ 100 mls/hr IV Q48H [facility] Last Infusion: 12/04/17 01:40 Dose: Infused Sodium Chloride (Sodium Chloride 0.45%) 1,000 mls @ 100 mls/hr IV ASDIRECTED [facility] Last Admin: 12/04/17 11:59 Dose: 100 mls/hr Vancomycin HCl 1.25 gm/ Sodium (Chloride) 500 mls @ 333.333 mls/hr IV Q24H [facility] Last Admin: 12/05/17 08:50 Dose: 333.333 mls/hr Levofloxacin/Dextrose 500 mg/ (Premix) 100 mls @ 100 mls/hr IV Q48H [facility] Last Admin: 12/05/17 22:34 Dose: 100 mls/hr Dextrose/Water (Dextrose 5% In Water) 1,000 mls @ 125 mls/hr IV ASDIRECTED [facility] Last Admin: 12/05/17 12:15 Dose: 100 mls/hr Vancomycin HCl 1.25 gm/ Sodium (Chloride) 250 mls @ 166.667 mls/hr IV Q24H [facility] Last Admin: 12/07/17 09:00 Dose: 166.667 mls/hr Meropenem 500 mg/ Sodium (Chloride) 100 mls @ 200 mls/hr IV Q12H [facility] Last Admin: 12/06/17 23:21 Dose: 200 mls/hr Potassium Chloride 30 meq/ (Dextrose/Water) 1,015 mls @ 100 mls/hr IV ASDIRECTED [facility] Last Admin: 12/06/17 06:47 Dose: 100 mls/hr Potassium Chloride 10 meq/ (Dextrose/Water) 1,005 mls @ 125 mls/hr IV ASDIRECTED [facility] Last Admin: 12/06/17 23:20 Dose: 125 mls/hr Potassium Chloride 10 meq/ (Dextrose/Water) 1,005 mls @ 125 mls/hr IV Q8H [facility] Last Admin: 12/08/17 03:47 Dose: 125 mls/hr Methylprednisolone Sodium Succinate (Solu-Medrol) 125 mg IVPUSH ONETIME ONE Stop: 12/03/17 20:52 Last Admin: 12/03/17 21:31 Dose: 125 mg Oseltamivir Phosphate (Tamiflu) 30 mg PO DAILY [facility] Vancomycin HCl (Pharmacy To Dose - Vancomycin) 1 dose .XX ASDIRECTED [facility] - Exam Quality Assessment: Supplemental Oxygen General: Obtunded Lungs: Clear to Auscultation Cardiovascular: Regular Rate, Regular Rhythm GI/Abdominal Exam: Normal Bowel Sounds Extremities: Pedal Edema (1+) Skin: Warm - Problem List Review Problem List Initiated/Reviewed/Updated: Yes - Plan Plan:: Assessment: #1. 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 Hypernatremia resolved #3. Acute kidney injury improving #4. Poor oral intake secondary to #1 Plan: #1. Switch to half-normal saline at 100 mL an hour. I want to decrease the rate with concerns of fluid overload. #2. Discontinue IV Levaquin. #3. At this point, the patient's progress in terms of mental status has been minimal. He seems to respond a little more to sternal rub than he has in previous days. However, I did go over with the family that given his history of Parkinson's, that there is a possibility that this could be his new baseline. We are ideally anticipating a recovery back to baseline. However, there is a possibility that won't be the case. So, I did go over possible tube feeds with the family is currently only thing he is taking in is the IV fluids. Daughter of the patient is reluctant about this. It appears that the living well created by the patient years ago indicates that he would not like artificial feeds. It was in discussion with the attending that we will continue give maintenance IV fluids for the next few days to see if there is any improvement in mental status. The family seems to be in agreement that tube feeds are probably not the Route that they want to go. However, all members of the family are not in agreement to this.
[2017-12-10] MEDS: Sodium Chloride 0.45% 1,000 ML IV SCH ×3 (00:44→21:20)
[2017-12-10] MEDS: Carboxymethylcellulose Sodium 0.5% Ophth Soln 0.4 ML UD Box of 30 EYEBOTH SCH ×4 (00:46→17:24)
[2017-12-10] MEDS ORDERED: Calcium Carbonate 500 MG Tab.Chew PO ONE (06:06)
[2017-12-10] MEDS: Insulin Aspart 100 Units/ML 3 ML Pen SUBCUT SCH ×3 (06:46→17:12)
--- NOTE | 2017-12-10 07:39 | PCM.PN ---
- General Info Date of Service: 12/10/17 Admission Dx/Problem (Free Text): Patient continues to be very difficult to arouse not showing much signs of improvement. 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 He is minimally arousable to voice and sternal rub. No new reported events from nursing. Subjective Update: Daughters state that he did eat some of his soup yesterday and feels he is improving some. He is still noncommunicating does open his eyes occasionally to nursing staff. Functional Status: Reports: Other - Review of Systems Systems Review Comment:: Patient is nonverbal at this time as per daughter's they feel he is doing somewhat better and has eaten some. Otherwise he's not taking in almost any fluids or solids. - Patient Data Vitals - Most Recent: Last Vital Signs Temp 97.8 F 12/10/17 04:00 Pulse 80 12/10/17 04:00 Resp 16 12/10/17 04:00 BP 124/73 12/10/17 04:00 Pulse Ox 96 12/10/17 06:00 Weight - Most Recent: 83.9 kg I&O - Last 24 Hours: Intake & Output 12/09/17 12/10/17 12/10/17 22:59 06:59 14:59 Intake Total 1146 1000 Output Total 800 Balance 346 1000 Lab Results Last 24 Hours: Laboratory Results - last 24 hr 12/09/17 12/09/17 12/09/17 Range/Units 07:18 07:18 11:27 WBC 7.49 (4.0-11.0) K/uL RBC 4.11 L (4.50-5.90) M/uL Hgb 13.0 (13.0-17.0) g/dL Hct 39.3 (38.0-50.0) % MCV 95.6 (80.0-98.0) fL MCH 31.6 (27.0-32.0) pg MCHC 33.1 (31.0-37.0) g/dL RDW Std Deviation 45.0 (28.0-62.0) fl RDW Coeff of Danny 13 (11.0-15.0) % Plt Count 88 L (150-400) K/uL MPV 12.60 H (7.40-12.00) fL Neut % (Auto) 65.0 (48.0-80.0) % Lymph % (Auto) 24.0 (16.0-40.0) % [place] % (Auto) 7.6 (0.0-15.0) % Eos % (Auto) 3.3 (0.0-7.0) % Baso % (Auto) 0.1 (0.0-1.5) % Neut # (Auto) 4.9 (1.4-5.7) K/uL Lymph # (Auto) 1.8 (0.6-2.4) K/uL [place] # (Auto) 0.6 (0.0-0.8) K/uL Eos # (Auto) 0.3 (0.0-0.7) K/uL Baso # (Auto) 0.0 (0.0-0.1) K/uL Nucleated RBC % 0.0 /100WBC Nucleated RBCs # 0 K/uL Sodium 145 (136-146) mmol/L Potassium 4.3 (3.5-5.1) mmol/L Chloride 115 H (98-110) mmol/L Carbon Dioxide 22 (21-31) mmol/L BUN 19 (6.0-23.0) mg/dL Creatinine 1.7 H (0.6-1.5) mg/dL Est Cr Clr Drug Dosing 31.99 mL/min Estimated GFR (MDRD) 38.2 ml/min Glucose 151 H (60-110) mg/dL POC Glucose 157 H (60-110) mg/dL Calcium 8.0 L (8.8-10.8) mg/dL 12/09/17 12/10/17 Range/Units 16:53 05:25 WBC (4.0-11.0) K/uL RBC (4.50-5.90) M/uL Hgb (13.0-17.0) g/dL Hct (38.0-50.0) % MCV (80.0-98.0) fL MCH (27.0-32.0) pg MCHC (31.0-37.0) g/dL RDW Std Deviation (28.0-62.0) fl RDW Coeff of Danny (11.0-15.0) % Plt Count (150-400) K/uL MPV (7.40-12.00) fL Neut % (Auto) (48.0-80.0) % Lymph % (Auto) (16.0-40.0) % [place] % (Auto) (0.0-15.0) % Eos % (Auto) (0.0-7.0) % Baso % (Auto) (0.0-1.5) % Neut # (Auto) (1.4-5.7) K/uL Lymph # (Auto) (0.6-2.4) K/uL [place] # (Auto) (0.0-0.8) K/uL Eos # (Auto) (0.0-0.7) K/uL Baso # (Auto) (0.0-0.1) K/uL Nucleated RBC % /100WBC Nucleated RBCs # K/uL Sodium 144 (136-146) mmol/L Potassium 3.3 L (3.5-5.1) mmol/L Chloride 115 H (98-110) mmol/L Carbon Dioxide 21 (21-31) mmol/L BUN 17 (6.0-23.0) mg/dL Creatinine 1.6 H (0.6-1.5) mg/dL Est Cr Clr Drug Dosing 33.99 mL/min Estimated GFR (MDRD) 41.0 ml/min Glucose 138 H (60-110) mg/dL POC Glucose 136 H (60-110) mg/dL Calcium 7.9 L (8.8-10.8) mg/dL José Miguel Results Last 24 Hours: Microbiology 12/04/17 07:45 Aerobic Blood Culture - Final Blood NO GROWTH AFTER 5 DAYS Anaerobic Blood Culture - Final NO GROWTH AFTER 5 DAYS 12/04/17 07:30 Aerobic Blood Culture - Final Blood NO GROWTH AFTER 5 DAYS Anaerobic Blood Culture - Final NO GROWTH AFTER 5 DAYS Med Orders - Current: Current Medications Acetaminophen (Tylenol) 650 mg PO Q6H PRN PRN Reason: Pain Acetaminophen (Tylenol) 650 mg RECTAL Q6H PRN PRN Reason: Pain/Fever Last Admin: 12/05/17 06:09 Dose: 650 mg Albuterol/Ipratropium (Duoneb 3.0-0.5 Mg/3 Ml) 3 ml NEB Q6HRRT PRN PRN Reason: Shortness of Breath Last Admin: 12/05/17 06:09 Dose: 3 ml Artificial Tears (Refresh Plus 0.5%) 1 each EYEBOTH QID REPLACED BY [facility] Last Admin: 12/10/17 05:50 Dose: 1 drop Bisacodyl (Dulcolax) 10 mg RECTAL BID PRN PRN Reason: Constipation Last Admin: 12/08/17 09:32 Dose: 10 mg Carbidopa/Levodopa (Sinemet 25-100 Mg) 2 tab PO QAM REPLACED BY [facility] Last Admin: 12/09/17 09:01 Dose: Not Given Carbidopa/Levodopa (Sinemet 25-100 Mg) 1.5 tab PO BID@1200,2100 REPLACED BY [facility] Last Admin: 12/09/17 20:36 Dose: Not Given Citalopram Hydrobromide (Celexa) 10 mg PO DAILY REPLACED BY [facility] Last Admin: 12/09/17 09:00 Dose: Not Given Donepezil HCl (Aricept) 5 mg PO DAILY REPLACED BY [facility] Last Admin: 12/09/17 09:00 Dose: Not Given Donepezil HCl (Aricept) 10 mg PO BEDTIME REPLACED BY [facility] Last Admin: 12/09/17 20:36 Dose: Not Given Heparin Sodium (Porcine) (Heparin Sodium) 5,000 units SUBCUT Q12HR REPLACED BY [facility] Last Admin: 12/09/17 20:35 Dose: Not Given Sodium Chloride (Sodium Chloride 0.45%) 1,000 mls @ 100 mls/hr IV ASDIRECTED REPLACED BY [facility] Last Admin: 12/10/17 00:44 Dose: 100 mls/hr Insulin Aspart (Novolog) 0 unit SUBCUT TIDAC [facility] PRN Reason: Protocol Last Admin: 12/10/17 06:46 Dose: Not Given Ondansetron HCl (Zofran) 4 mg IVPUSH Q4H PRN PRN Reason: Nausea Last Admin: 12/04/17 21:06 Dose: 4 mg Namenda Xr 28 Mg 1 each PO DAILY REPLACED BY [facility] Last Admin: 12/09/17 09:01 Dose: Not Given Wound Care/Dressing Products (Duoderm Cgf) 1 each TOP DAILY REPLACED BY [facility] Discontinued Medications Albuterol/Ipratropium (Duoneb 3.0-0.5 Mg/3 Ml) 3 ml NEB ONETIME ONE Stop: 12/03/17 20:52 Last Admin: 12/03/17 21:33 Dose: 3 ml Bisacodyl (Dulcolax) 10 mg RECTAL ONETIME ONE Stop: 12/04/17 11:29 Last Admin: 12/04/17 13:58 Dose: 10 mg Bisacodyl (Dulcolax) Confirm Administered Dose 10 mg .ROUTE .STK-MED ONE Stop: 12/04/17 13:54 Last Admin: 12/04/17 16:16 Dose: Not Given Calcium Carbonate/Glycine (Tums) 1,000 mg PO ONETIME ONE Stop: 12/10/17 06:07 Last Admin: 12/10/17 06:46 Dose: Not Given Carbidopa/Levodopa (Sinemet 25-100 Mg) 1.5 tab PO ASDIRECTED REPLACED BY [facility] Sodium Chloride (Normal Saline) 1,000 mls @ 999 mls/hr IV STAT ONE Stop: 12/03/17 21:51 Last Admin: 12/04/17 00:06 Dose: Not Given Sodium Chloride (Normal Saline) 1,000 mls @ 100 mls/hr IV ASDIRECTED REPLACED BY [facility] Last Infusion: 12/04/17 01:45 Dose: 100 mls/hr Levofloxacin/Dextrose 750 mg/ (Premix) 150 mls @ 100 mls/hr IV Q48H REPLACED BY [facility] Last Infusion: 12/04/17 01:40 Dose: Infused Sodium Chloride (Sodium Chloride 0.45%) 1,000 mls @ 100 mls/hr IV ASDIRECTED REPLACED BY [facility] Last Admin: 12/04/17 11:59 Dose: 100 mls/hr Vancomycin HCl 1.25 gm/ Sodium (Chloride) 500 mls @ 333.333 mls/hr IV Q24H REPLACED BY [facility] Last Admin: 12/05/17 08:50 Dose: 333.333 mls/hr Levofloxacin/Dextrose 500 mg/ (Premix) 100 mls @ 100 mls/hr IV Q48H REPLACED BY [facility] Last Admin: 12/05/17 22:34 Dose: 100 mls/hr Dextrose/Water (Dextrose 5% In Water) 1,000 mls @ 125 mls/hr IV ASDIRECTED REPLACED BY [facility] Last Admin: 12/05/17 12:15 Dose: 100 mls/hr Vancomycin HCl 1.25 gm/ Sodium (Chloride) 250 mls @ 166.667 mls/hr IV Q24H REPLACED BY [facility] Last Admin: 12/07/17 09:00 Dose: 166.667 mls/hr Meropenem 500 mg/ Sodium (Chloride) 100 mls @ 200 mls/hr IV Q12H REPLACED BY [facility] Last Admin: 12/06/17 23:21 Dose: 200 mls/hr Potassium Chloride 30 meq/ (Dextrose/Water) 1,015 mls @ 100 mls/hr IV ASDIRECTED REPLACED BY [facility] Last Admin: 12/06/17 06:47 Dose: 100 mls/hr Levofloxacin/Dextrose 750 mg/ (Premix) 150 mls @ 150 mls/hr IV Q48H REPLACED BY [facility] Last Admin: 12/07/17 21:29 Dose: 150 mls/hr Potassium Chloride 10 meq/ (Dextrose/Water) 1,005 mls @ 125 mls/hr IV ASDIRECTED REPLACED BY [facility] Last Admin: 12/06/17 23:20 Dose: 125 mls/hr Potassium Chloride 10 meq/ (Dextrose/Water) 1,005 mls @ 125 mls/hr IV Q8H REPLACED BY [facility] Last Admin: 12/08/17 03:47 Dose: 125 mls/hr Methylprednisolone Sodium Succinate (Solu-Medrol) 125 mg IVPUSH ONETIME ONE Stop: 12/03/17 20:52 Last Admin: 12/03/17 21:31 Dose: 125 mg Oseltamivir Phosphate (Tamiflu) 30 mg PO DAILY REPLACED BY [facility] Oseltamivir Phosphate (Oseltamivir Phosphate) 30 mg PO DAILY REPLACED BY [facility] Last Admin: 12/09/17 09:00 Dose: Not Given Vancomycin HCl (Pharmacy To Dose - Vancomycin) 1 dose .XX ASDIRECTED REPLACED BY [facility] - Exam Quality Assessment: Supplemental Oxygen, DVT Prophylaxis General: Other HEENT: Pupils Equal, Pupils Reactive, EOMI, Mucous Membr. Moist/[place] Neck: Supple Lungs: Clear to Auscultation Cardiovascular: Regular Rate, Regular Rhythm GI/Abdominal Exam: Normal Bowel Sounds, Soft, Non-Tender, No Organomegaly, No Distention Back Exam: Normal Inspection Extremities: Non-Tender, Normal Capillary Refill Skin: Warm, Dry, Intact Wound/Incisions: Healing Well Neurological: No New Focal Deficit Psy/Mental Status: Alert, Normal Affect, Normal Mood - Problem List Review Problem List Initiated/Reviewed/Updated: Yes - My Orders Last 24 Hours: My Active Orders 12/09/17 11:17 Sr. Pricing Analyst Discontinue [Cardiac Monitoring Discontinue] [RC] Click to Edit 12/10/17 09:00 Hydrocolloid Dressing [DuoDerm CGF] 1 each TOP DAILY - Plan Plan:: Assessment: #1. 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 Hypernatremia resolved #3. Acute kidney injury improving #4. Poor oral intake secondary to #1 Plan: #1. Cont. 1/2 normal saline at 100 ml/hr. Watch for fluid overload but patient taking very little in otherwise. #3. Have talked with family at length about what his new normal May be. They' re still hoping that he has a full recovery back to his normal self prior to illness, but given his recent illness and advancing Parkinson's this may be his new normal and he may not improve much more. Have talked with the family and will watch him through the weekend to see if he has any more improvements.
[2017-12-10] MEDS ORDERED: Hydrocolloid Dressing 4x4 Bandage TOP SCH (09:00)
[2017-12-10] MEDS: Citalopram 20 MG Tab PO SCH (09:20)
[2017-12-10] MEDS: Donepezil 5 MG Tab PO SCH ×2 (09:20→21:43)
[2017-12-10] MEDS: NAMENDA XR 28 MG PO SCH (09:21)
[2017-12-10] MEDS: Carbidopa/Levodopa 25-100 MG Tab PO SCH ×3 (09:21→21:44)
[2017-12-10] MEDS: Heparin Sodium 5,000 Units/ML Vial SUBCUT SCH ×2 (09:21→21:44)
[2017-12-11] MEDS: Carboxymethylcellulose Sodium 0.5% Ophth Soln 0.4 ML UD Box of 30 EYEBOTH SCH ×4 (01:14→17:47)
[2017-12-11] MEDS: Insulin Aspart 100 Units/ML 3 ML Pen SUBCUT SCH ×3 (06:41→16:38)
[2017-12-11] MEDS: Sodium Chloride 0.45% 1,000 ML IV SCH (07:32)
[2017-12-11] MEDS ORDERED: Hydrocolloid Dressing 4x4 Bandage TOP PRN (07:35)
[2017-12-11] MEDS: Citalopram 20 MG Tab PO SCH (08:23)
[2017-12-11] MEDS: Carbidopa/Levodopa 25-100 MG Tab PO SCH ×3 (08:23→21:43)
[2017-12-11] MEDS: Donepezil 5 MG Tab PO SCH ×2 (08:23→21:43)
[2017-12-11] MEDS: NAMENDA XR 28 MG PO SCH (08:23)
[2017-12-11] MEDS: Heparin Sodium 5,000 Units/ML Vial SUBCUT SCH ×2 (08:44→22:27)
--- NOTE | 2017-12-11 08:59 | PCM.PN ---
- General Info Date of Service: 12/11/17 Admission Dx/Problem (Free Text): Patient continues to be very difficult to arouse not showing much signs of improvement. 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 He is minimally arousable to voice and sternal rub. No new reported events from nursing. Subjective Update: Still only taking in minimal fluids. Daughters more open to comfort care. Appears to not be in any pain. Functional Status: Reports: Pain Controlled - Review of Systems Systems Review Comment:: Nonverbal which has been his baseline. Does respond to pain. - Patient Data Vitals - Most Recent: Last Vital Signs Temp 98.1 F 12/11/17 08:00 Pulse 83 12/11/17 08:00 Resp 18 12/11/17 08:00 BP 140/60 12/11/17 08:00 Pulse Ox 94 L 12/11/17 08:00 Weight - Most Recent: 83.9 kg I&O - Last 24 Hours: Intake & Output 12/10/17 12/11/17 12/11/17 22:59 06:59 14:59 Intake Total 452 1206 Output Total 555 500 Balance -103 706 Lab Results Last 24 Hours: Laboratory Results - last 24 hr 12/10/17 12/10/17 12/10/17 Range/Units 06:16 11:35 17:00 WBC (4.0-11.0) K/uL RBC (4.50-5.90) M/uL Hgb (13.0-17.0) g/dL Hct (38.0-50.0) % MCV (80.0-98.0) fL MCH (27.0-32.0) pg MCHC (31.0-37.0) g/dL RDW Std Deviation (28.0-62.0) fl RDW Coeff of Danny (11.0-15.0) % Plt Count (150-400) K/uL MPV (7.40-12.00) fL Neut % (Auto) (48.0-80.0) % Lymph % (Auto) (16.0-40.0) % [place] % (Auto) (0.0-15.0) % Eos % (Auto) (0.0-7.0) % Baso % (Auto) (0.0-1.5) % Neut # (Auto) (1.4-5.7) K/uL Lymph # (Auto) (0.6-2.4) K/uL [place] # (Auto) (0.0-0.8) K/uL Eos # (Auto) (0.0-0.7) K/uL Baso # (Auto) (0.0-0.1) K/uL Nucleated RBC % /100WBC Nucleated RBCs # K/uL Sodium (136-146) mmol/L Potassium (3.5-5.1) mmol/L Chloride (98-110) mmol/L Carbon Dioxide (21-31) mmol/L BUN (6.0-23.0) mg/dL Creatinine (0.6-1.5) mg/dL Est Cr Clr Drug Dosing mL/min Estimated GFR (MDRD) ml/min Glucose (60-110) mg/dL POC Glucose 120 H 129 H 131 H (60-110) mg/dL Calcium (8.8-10.8) mg/dL 12/11/17 12/11/17 12/11/17 Range/Units 05:35 05:35 06:39 WBC 7.65 (4.0-11.0) K/uL RBC 3.77 L (4.50-5.90) M/uL Hgb 11.7 L (13.0-17.0) g/dL Hct 35.6 L (38.0-50.0) % MCV 94.4 (80.0-98.0) fL MCH 31.0 (27.0-32.0) pg MCHC 32.9 (31.0-37.0) g/dL RDW Std Deviation 44.9 (28.0-62.0) fl RDW Coeff of Danny 13 (11.0-15.0) % Plt Count 122 L (150-400) K/uL MPV 11.40 (7.40-12.00) fL Neut % (Auto) 67.6 (48.0-80.0) % Lymph % (Auto) 20.9 (16.0-40.0) % [place] % (Auto) 7.7 (0.0-15.0) % Eos % (Auto) 3.5 (0.0-7.0) % Baso % (Auto) 0.3 (0.0-1.5) % Neut # (Auto) 5.2 (1.4-5.7) K/uL Lymph # (Auto) 1.6 (0.6-2.4) K/uL [place] # (Auto) 0.6 (0.0-0.8) K/uL Eos # (Auto) 0.3 (0.0-0.7) K/uL Baso # (Auto) 0.0 (0.0-0.1) K/uL Nucleated RBC % 0.0 /100WBC Nucleated RBCs # 0 K/uL Sodium 143 (136-146) mmol/L Potassium 3.2 L (3.5-5.1) mmol/L Chloride 116 H (98-110) mmol/L Carbon Dioxide 18 L (21-31) mmol/L BUN 15 (6.0-23.0) mg/dL Creatinine 1.4 (0.6-1.5) mg/dL Est Cr Clr Drug Dosing 38.85 mL/min Estimated GFR (MDRD) 47.8 ml/min Glucose 121 H (60-110) mg/dL POC Glucose 125 H (60-110) mg/dL Calcium 7.9 L (8.8-10.8) mg/dL Med Orders - Current: Current Medications Acetaminophen (Tylenol) 650 mg PO Q6H PRN PRN Reason: Pain Acetaminophen (Tylenol) 650 mg RECTAL Q6H PRN PRN Reason: Pain/Fever Last Admin: 12/05/17 06:09 Dose: 650 mg Albuterol/Ipratropium (Duoneb 3.0-0.5 Mg/3 Ml) 3 ml NEB Q6HRRT PRN PRN Reason: Shortness of Breath Last Admin: 12/05/17 06:09 Dose: 3 ml Artificial Tears (Refresh Plus 0.5%) 1 each EYEBOTH QID [facility] Last Admin: 12/11/17 06:41 Dose: 1 drop Bisacodyl (Dulcolax) 10 mg RECTAL BID PRN PRN Reason: Constipation Last Admin: 12/08/17 09:32 Dose: 10 mg Carbidopa/Levodopa (Sinemet 25-100 Mg) 2 tab PO QAM [facility] Last Admin: 12/11/17 08:23 Dose: Not Given Carbidopa/Levodopa (Sinemet 25-100 Mg) 1.5 tab PO BID@1200,2100 [facility] Last Admin: 12/10/17 21:44 Dose: Not Given Citalopram Hydrobromide (Celexa) 10 mg PO DAILY [facility] Last Admin: 12/11/17 08:23 Dose: Not Given Donepezil HCl (Aricept) 5 mg PO DAILY [facility] Last Admin: 12/11/17 08:23 Dose: Not Given Donepezil HCl (Aricept) 10 mg PO BEDTIME [facility] Last Admin: 12/10/17 21:43 Dose: Not Given Heparin Sodium (Porcine) (Heparin Sodium) 5,000 units SUBCUT Q12HR [facility] Last Admin: 12/11/17 08:44 Dose: 5,000 units Sodium Chloride (Sodium Chloride 0.45%) 1,000 mls @ 100 mls/hr IV ASDIRECTED [facility] Last Admin: 12/11/17 07:32 Dose: 100 mls/hr Insulin Aspart (Novolog) 0 unit SUBCUT TIDAC [facility] PRN Reason: Protocol Last Admin: 12/11/17 06:41 Dose: Not Given Ondansetron HCl (Zofran) 4 mg IVPUSH Q4H PRN PRN Reason: Nausea Last Admin: 12/04/17 21:06 Dose: 4 mg Namenda Xr 28 Mg 1 each PO DAILY [facility] Last Admin: 12/11/17 08:23 Dose: Not Given Wound Care/Dressing Products (Duoderm Cgf) 1 each TOP ASDIRECTED PRN PRN Reason: Other Discontinued Medications Albuterol/Ipratropium (Duoneb 3.0-0.5 Mg/3 Ml) 3 ml NEB ONETIME ONE Stop: 12/03/17 20:52 Last Admin: 12/03/17 21:33 Dose: 3 ml Bisacodyl (Dulcolax) 10 mg RECTAL ONETIME ONE Stop: 12/04/17 11:29 Last Admin: 12/04/17 13:58 Dose: 10 mg Bisacodyl (Dulcolax) Confirm Administered Dose 10 mg .ROUTE .STK-MED ONE Stop: 12/04/17 13:54 Last Admin: 12/04/17 16:16 Dose: Not Given Calcium Carbonate/Glycine (Tums) 1,000 mg PO ONETIME ONE Stop: 12/10/17 06:07 Last Admin: 12/10/17 06:46 Dose: Not Given Carbidopa/Levodopa (Sinemet 25-100 Mg) 1.5 tab PO ASDIRECTED [facility] Sodium Chloride (Normal Saline) 1,000 mls @ 999 mls/hr IV STAT ONE Stop: 12/03/17 21:51 Last Admin: 12/04/17 00:06 Dose: Not Given Sodium Chloride (Normal Saline) 1,000 mls @ 100 mls/hr IV ASDIRECTED [facility] Last Infusion: 12/04/17 01:45 Dose: 100 mls/hr Levofloxacin/Dextrose 750 mg/ (Premix) 150 mls @ 100 mls/hr IV Q48H [facility] Last Infusion: 12/04/17 01:40 Dose: Infused Sodium Chloride (Sodium Chloride 0.45%) 1,000 mls @ 100 mls/hr IV ASDIRECTED [facility] Last Admin: 12/04/17 11:59 Dose: 100 mls/hr Vancomycin HCl 1.25 gm/ Sodium (Chloride) 500 mls @ 333.333 mls/hr IV Q24H [facility] Last Admin: 12/05/17 08:50 Dose: 333.333 mls/hr Levofloxacin/Dextrose 500 mg/ (Premix) 100 mls @ 100 mls/hr IV Q48H [facility] Last Admin: 12/05/17 22:34 Dose: 100 mls/hr Dextrose/Water (Dextrose 5% In Water) 1,000 mls @ 125 mls/hr IV ASDIRECTED [facility] Last Admin: 12/05/17 12:15 Dose: 100 mls/hr Vancomycin HCl 1.25 gm/ Sodium (Chloride) 250 mls @ 166.667 mls/hr IV Q24H [facility] Last Admin: 12/07/17 09:00 Dose: 166.667 mls/hr Meropenem 500 mg/ Sodium (Chloride) 100 mls @ 200 mls/hr IV Q12H [facility] Last Admin: 12/06/17 23:21 Dose: 200 mls/hr Potassium Chloride 30 meq/ (Dextrose/Water) 1,015 mls @ 100 mls/hr IV ASDIRECTED [facility] Last Admin: 12/06/17 06:47 Dose: 100 mls/hr Levofloxacin/Dextrose 750 mg/ (Premix) 150 mls @ 150 mls/hr IV Q48H [facility] Last Admin: 12/07/17 21:29 Dose: 150 mls/hr Potassium Chloride 10 meq/ (Dextrose/Water) 1,005 mls @ 125 mls/hr IV ASDIRECTED [facility] Last Admin: 12/06/17 23:20 Dose: 125 mls/hr Potassium Chloride 10 meq/ (Dextrose/Water) 1,005 mls @ 125 mls/hr IV Q8H [facility] Last Admin: 12/08/17 03:47 Dose: 125 mls/hr Methylprednisolone Sodium Succinate (Solu-Medrol) 125 mg IVPUSH ONETIME ONE Stop: 12/03/17 20:52 Last Admin: 12/03/17 21:31 Dose: 125 mg Oseltamivir Phosphate (Tamiflu) 30 mg PO DAILY [facility] Oseltamivir Phosphate (Oseltamivir Phosphate) 30 mg PO DAILY [facility] Last Admin: 12/09/17 09:00 Dose: Not Given Vancomycin HCl (Pharmacy To Dose - Vancomycin) 1 dose .XX ASDIRECTED [facility] Wound Care/Dressing Products (Duoderm Cgf) 1 each TOP DAILY [facility] Last Admin: 12/10/17 09:37 Dose: 1 each - Exam Quality Assessment: Supplemental Oxygen, DVT Prophylaxis General: No Acute Distress HEENT: Pupils Equal, Pupils Reactive, EOMI, Mucous Membr. Moist/[place] Neck: Supple Lungs: Clear to Auscultation, Normal Respiratory Effort Cardiovascular: Regular Rate, Regular Rhythm GI/Abdominal Exam: Normal Bowel Sounds, Soft, Non-Tender, No Organomegaly, No Distention (Male) Exam: Deferred Back Exam: Normal Inspection Extremities: Normal Inspection, Non-Tender, No Pedal Edema, Normal Capillary Refill Peripheral Pulses: 2+: Radial (L), Radial (R), Posterior Tibial (L), Posterior Tibial (R), Dorsalis Pedis (L), Dorsalis Pedis (R) Skin: Warm, Dry, Intact Neurological: No New Focal Deficit Psy/Mental Status: Other (Nonresponsive which is his baseline. Will respond to pain. ) - Problem List & Annotations (1) Dehydration SNOMED Code(s): 71823082 Code(s): E86.0 - DEHYDRATION Status: Resolved Priority: High Current Visit: Yes (2) Hypernatremia SNOMED Code(s): 17079444 Code(s): E87.0 - HYPEROSMOLALITY AND HYPERNATREMIA Status: Resolved Priority: High Current Visit: Yes (3) Hypoxemia SNOMED Code(s): 431188825 Code(s): R09.02 - HYPOXEMIA Status: Acute Priority: High Current Visit : Yes - Problem List Review Problem List Initiated/Reviewed/Updated: Yes - My Orders Last 24 Hours: My Active Orders 12/11/17 07:35 Hydrocolloid Dressing [DuoDerm CGF] 1 each TOP ASDIRECTED PRN 12/12/17 05:11 BASIC METABOLIC PANEL,BMP [CHEM] AM CBC WITH AUTO DIFF [HEME] AM 12/13/17 05:11 BASIC METABOLIC PANEL,BMP [CHEM] AM CBC WITH AUTO DIFF [HEME] AM - Plan Plan:: 87 yo male admitted 12/03/17 for altered mental status, hypernatremia, acute kidney injury with pmh of end-stage Parkinson's and Lewey body dementia. Assessment: #1. 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 Hypernatremia resolved #3. Acute kidney injury resolved #4. Poor oral intake secondary to #1 Plan: #1. Cont. 1/2 normal saline at 100 ml/hr. Watch for fluid overload but patient taking very little in otherwise. #2. Have talked with family once again that this may be his new baseline and daughters are more open to comfort care. They would like this to be discussed more on Tuesday when they're brothers are here. Did offer to talk with them when they arrive. #3. Most likely back to [place] on Tuesday pending.
[2017-12-11] MEDS: D5 1/2 NS w/ 20 mEq/L KCl 1,000 ML IV SCH (10:05)
--- NOTE | 2017-12-11 17:33 | PCM.SN ---
- Free Text/Narrative Note: Talked with both daughters and one of the sons. They are thinking more comfort care as his living will states that he does not want any tube feeds. According to them the other son is the only one that is possible wanting more done. He was not present during the discussion.
[2017-12-12] MEDS: Sodium Chloride 0.45% 1,000 ML IV SCH ×2 (01:40→11:53)
[2017-12-12] MEDS: Carboxymethylcellulose Sodium 0.5% Ophth Soln 0.4 ML UD Box of 30 EYEBOTH SCH ×4 (01:40→17:30)
[2017-12-12] MEDS: Insulin Aspart 100 Units/ML 3 ML Pen SUBCUT SCH ×2 (06:35→12:08)
[2017-12-12] MEDS: Donepezil 5 MG Tab PO SCH (08:48)
[2017-12-12] MEDS: Carbidopa/Levodopa 25-100 MG Tab PO SCH ×2 (08:49→13:44)
[2017-12-12] MEDS: NAMENDA XR 28 MG PO SCH (08:49)
[2017-12-12] MEDS: Citalopram 20 MG Tab PO SCH (08:49)
[2017-12-12] MEDS: Heparin Sodium 5,000 Units/ML Vial SUBCUT SCH (08:53)
--- NOTE | 2017-12-12 12:35 | PCM.PN ---
- General Info Date of Service: 12/12/17 Subjective Update: patient remains unresponsiveand is very difficult to her isles despite sternal rub. Dr. Graves spoke with the patient's family yesterday in regards to comfort care and hospice consultation. The family and Dr. Arce she'll be having a meeting today to finalize the decision and move forward. - Patient Data Vitals - Most Recent: Last Vital Signs Temp 36.7 C 12/12/17 08:00 Pulse 58 L 12/12/17 08:00 Resp 18 12/12/17 08:00 BP 120/50 L 12/12/17 08:00 Pulse Ox 95 12/12/17 08:00 Weight - Most Recent: 83.9 kg I&O - Last 24 Hours: Intake & Output 12/11/17 12/12/17 12/12/17 22:59 06:59 14:59 Intake Total 1680 770 Output Total 500 Balance 1180 770 Lab Results Last 24 Hours: Laboratory Results - last 24 hr 12/11/17 12/11/17 12/12/17 Range/Units 11:39 16:32 05:30 WBC 6.18 (4.0-11.0) K/uL RBC 3.64 L (4.50-5.90) M/uL Hgb 11.3 L (13.0-17.0) g/dL Hct 33.9 L (38.0-50.0) % MCV 93.1 (80.0-98.0) fL MCH 31.0 (27.0-32.0) pg MCHC 33.3 (31.0-37.0) g/dL RDW Std Deviation 44.0 (28.0-62.0) fl RDW Coeff of Danny 13 (11.0-15.0) % Plt Count 140 L (150-400) K/uL MPV 11.00 (7.40-12.00) fL Neut % (Auto) 62.7 (48.0-80.0) % Lymph % (Auto) 23.6 (16.0-40.0) % Charles % (Auto) 10.5 (0.0-15.0) % Eos % (Auto) 2.9 (0.0-7.0) % Baso % (Auto) 0.3 (0.0-1.5) % Neut # (Auto) 3.9 (1.4-5.7) K/uL Lymph # (Auto) 1.5 (0.6-2.4) K/uL Charles # (Auto) 0.7 (0.0-0.8) K/uL Eos # (Auto) 0.2 (0.0-0.7) K/uL Baso # (Auto) 0.0 (0.0-0.1) K/uL Nucleated RBC % 0.0 /100WBC Nucleated RBCs # 0 K/uL Sodium (136-146) mmol/L Potassium (3.5-5.1) mmol/L Chloride (98-110) mmol/L Carbon Dioxide (21-31) mmol/L BUN (6.0-23.0) mg/dL Creatinine (0.6-1.5) mg/dL Est Cr Clr Drug Dosing mL/min Estimated GFR (MDRD) ml/min Glucose (60-110) mg/dL POC Glucose 139 H 175 H (60-110) mg/dL Calcium (8.8-10.8) mg/dL 12/12/17 12/12/17 Range/Units 05:30 06:19 WBC (4.0-11.0) K/uL RBC (4.50-5.90) M/uL Hgb (13.0-17.0) g/dL Hct (38.0-50.0) % MCV (80.0-98.0) fL MCH (27.0-32.0) pg MCHC (31.0-37.0) g/dL RDW Std Deviation (28.0-62.0) fl RDW Coeff of Danny (11.0-15.0) % Plt Count (150-400) K/uL MPV (7.40-12.00) fL Neut % (Auto) (48.0-80.0) % Lymph % (Auto) (16.0-40.0) % Charles % (Auto) (0.0-15.0) % Eos % (Auto) (0.0-7.0) % Baso % (Auto) (0.0-1.5) % Neut # (Auto) (1.4-5.7) K/uL Lymph # (Auto) (0.6-2.4) K/uL Charles # (Auto) (0.0-0.8) K/uL Eos # (Auto) (0.0-0.7) K/uL Baso # (Auto) (0.0-0.1) K/uL Nucleated RBC % /100WBC Nucleated RBCs # K/uL Sodium 143 (136-146) mmol/L Potassium 3.0 L (3.5-5.1) mmol/L Chloride 116 H (98-110) mmol/L Carbon Dioxide 18 L (21-31) mmol/L BUN 11 (6.0-23.0) mg/dL Creatinine 1.3 (0.6-1.5) mg/dL Est Cr Clr Drug Dosing 41.83 mL/min Estimated GFR (MDRD) 52.1 ml/min Glucose 108 (60-110) mg/dL POC Glucose 115 H (60-110) mg/dL Calcium 7.6 L (8.8-10.8) mg/dL Med Orders - Current: Current Medications Acetaminophen (Tylenol) 650 mg PO Q6H PRN PRN Reason: Pain Acetaminophen (Tylenol) 650 mg RECTAL Q6H PRN PRN Reason: Pain/Fever Last Admin: 12/05/17 06:09 Dose: 650 mg Albuterol/Ipratropium (Duoneb 3.0-0.5 Mg/3 Ml) 3 ml NEB Q6HRRT PRN PRN Reason: Shortness of Breath Last Admin: 12/05/17 06:09 Dose: 3 ml Artificial Tears (Refresh Plus 0.5%) 1 each EYEBOTH QID [facility] Last Admin: 12/12/17 06:06 Dose: 1 drop Bisacodyl (Dulcolax) 10 mg RECTAL BID PRN PRN Reason: Constipation Last Admin: 12/08/17 09:32 Dose: 10 mg Carbidopa/Levodopa (Sinemet 25-100 Mg) 2 tab PO QAM [facility] Last Admin: 12/12/17 08:49 Dose: Not Given Carbidopa/Levodopa (Sinemet 25-100 Mg) 1.5 tab PO BID@1200,2100 [facility] Last Admin: 12/11/17 21:43 Dose: Not Given Citalopram Hydrobromide (Celexa) 10 mg PO DAILY [facility] Last Admin: 12/12/17 08:49 Dose: Not Given Donepezil HCl (Aricept) 5 mg PO DAILY [facility] Last Admin: 12/12/17 08:48 Dose: Not Given Donepezil HCl (Aricept) 10 mg PO BEDTIME [facility] Last Admin: 12/11/17 21:43 Dose: Not Given Heparin Sodium (Porcine) (Heparin Sodium) 5,000 units SUBCUT Q12HR [facility] Last Admin: 12/12/17 08:53 Dose: 5,000 units Sodium Chloride (Sodium Chloride 0.45%) 1,000 mls @ 100 mls/hr IV ASDIRECTED [facility] Last Admin: 12/12/17 11:53 Dose: 100 mls/hr Potassium Chloride/Dextrose/Sod Cl (D5 1/2 Ns W/ 20 Meq/L Kcl) 1,000 mls @ 100 mls/hr IV ASDIRECTED [facility] Last Admin: 12/11/17 10:05 Dose: 100 mls/hr Insulin Aspart (Novolog) 0 unit SUBCUT TIDAC [facility] PRN Reason: Protocol Last Admin: 12/12/17 12:08 Dose: Not Given Ondansetron HCl (Zofran) 4 mg IVPUSH Q4H PRN PRN Reason: Nausea Last Admin: 12/04/17 21:06 Dose: 4 mg Namenda Xr 28 Mg 1 each PO DAILY [facility] Last Admin: 12/12/17 08:49 Dose: Not Given Wound Care/Dressing Products (Duoderm Cgf) 1 each TOP ASDIRECTED PRN PRN Reason: Other Discontinued Medications Albuterol/Ipratropium (Duoneb 3.0-0.5 Mg/3 Ml) 3 ml NEB ONETIME ONE Stop: 12/03/17 20:52 Last Admin: 12/03/17 21:33 Dose: 3 ml Bisacodyl (Dulcolax) 10 mg RECTAL ONETIME ONE Stop: 12/04/17 11:29 Last Admin: 12/04/17 13:58 Dose: 10 mg Bisacodyl (Dulcolax) Confirm Administered Dose 10 mg .ROUTE .STK-MED ONE Stop: 12/04/17 13:54 Last Admin: 12/04/17 16:16 Dose: Not Given Calcium Carbonate/Glycine (Tums) 1,000 mg PO ONETIME ONE Stop: 12/10/17 06:07 Last Admin: 12/10/17 06:46 Dose: Not Given Carbidopa/Levodopa (Sinemet 25-100 Mg) 1.5 tab PO ASDIRECTED [facility] Sodium Chloride (Normal Saline) 1,000 mls @ 999 mls/hr IV STAT ONE Stop: 12/03/17 21:51 Last Admin: 12/04/17 00:06 Dose: Not Given Sodium Chloride (Normal Saline) 1,000 mls @ 100 mls/hr IV ASDIRECTED [facility] Last Infusion: 12/04/17 01:45 Dose: 100 mls/hr Levofloxacin/Dextrose 750 mg/ (Premix) 150 mls @ 100 mls/hr IV Q48H [facility] Last Infusion: 12/04/17 01:40 Dose: Infused Sodium Chloride (Sodium Chloride 0.45%) 1,000 mls @ 100 mls/hr IV ASDIRECTED [facility] Last Admin: 12/04/17 11:59 Dose: 100 mls/hr Vancomycin HCl 1.25 gm/ Sodium (Chloride) 500 mls @ 333.333 mls/hr IV Q24H [facility] Last Admin: 12/05/17 08:50 Dose: 333.333 mls/hr Levofloxacin/Dextrose 500 mg/ (Premix) 100 mls @ 100 mls/hr IV Q48H [facility] Last Admin: 12/05/17 22:34 Dose: 100 mls/hr Dextrose/Water (Dextrose 5% In Water) 1,000 mls @ 125 mls/hr IV ASDIRECTED [facility] Last Admin: 12/05/17 12:15 Dose: 100 mls/hr Vancomycin HCl 1.25 gm/ Sodium (Chloride) 250 mls @ 166.667 mls/hr IV Q24H [facility] Last Admin: 12/07/17 09:00 Dose: 166.667 mls/hr Meropenem 500 mg/ Sodium (Chloride) 100 mls @ 200 mls/hr IV Q12H [facility] Last Admin: 12/06/17 23:21 Dose: 200 mls/hr Potassium Chloride 30 meq/ (Dextrose/Water) 1,015 mls @ 100 mls/hr IV ASDIRECTED [facility] Last Admin: 12/06/17 06:47 Dose: 100 mls/hr Levofloxacin/Dextrose 750 mg/ (Premix) 150 mls @ 150 mls/hr IV Q48H [facility] Last Admin: 12/07/17 21:29 Dose: 150 mls/hr Potassium Chloride 10 meq/ (Dextrose/Water) 1,005 mls @ 125 mls/hr IV ASDIRECTED [facility] Last Admin: 12/06/17 23:20 Dose: 125 mls/hr Potassium Chloride 10 meq/ (Dextrose/Water) 1,005 mls @ 125 mls/hr IV Q8H [facility] Last Admin: 12/08/17 03:47 Dose: 125 mls/hr Methylprednisolone Sodium Succinate (Solu-Medrol) 125 mg IVPUSH ONETIME ONE Stop: 12/03/17 20:52 Last Admin: 12/03/17 21:31 Dose: 125 mg Oseltamivir Phosphate (Tamiflu) 30 mg PO DAILY [facility] Oseltamivir Phosphate (Oseltamivir Phosphate) 30 mg PO DAILY [facility] Last Admin: 12/09/17 09:00 Dose: Not Given Vancomycin HCl (Pharmacy To Dose - Vancomycin) 1 dose .XX ASDIRECTED [facility] Wound Care/Dressing Products (Duoderm Cgf) 1 each TOP DAILY [facility] Last Admin: 12/10/17 09:37 Dose: 1 each - Exam General: No Acute Distress, Other (patient is unresponsive and difficult to arouse despite sternal rub) HEENT: Pupils Equal, Pupils Reactive Neck: Supple Lungs: Clear to Auscultation, Normal Respiratory Effort Cardiovascular: Regular Rate, Regular Rhythm Skin: Warm, Dry, Intact Neurological: No New Focal Deficit - Problem List Review Problem List Initiated/Reviewed/Updated: Yes - Plan Plan:: 87 yo male admitted 12/03/17 for altered mental status, hypernatremia, acute kidney injury with pmh of end-stage Parkinson's and Lewey body dementia. Assessment: #1. Altered mental status secondary to end-stage Parkinson's #2. Hypernatremia which has now resolved #3. Acute kidney injury resolved secondary to adequate hydration #4. Poor oral intake secondary to #1 #5. Due to poor responsiveness and poor outlook family has decided to place the patient on comfort care. Plan: Cont. 1/2 normal saline at 100 ml/hr. Watch for fluid overload but patient taking very little in otherwise. Dr. Graves have discussed today with his family in regards to comfort care. The family has agreed and he is now going to be placed upon comfort care. Hospice has been consulted. Disposition: Discharged likely tomorrow.
[2017-12-12] MEDS: Bisacodyl 10 MG Supp RECTAL PRN (14:44)
[2017-12-12] MEDS: D5 1/2 NS w/ 20 mEq/L KCl 1,000 ML IV SCH (22:26)
[2017-12-13] MEDS: Carboxymethylcellulose Sodium 0.5% Ophth Soln 0.4 ML UD Box of 30 EYEBOTH SCH ×3 (00:26→11:24)
[2017-12-13] MEDS: D5 1/2 NS w/ 20 mEq/L KCl 1,000 ML IV SCH (08:37)
--- NOTE | 2017-12-14 13:26 | PCM.DCSUM1 ---
Discharge Summary - Hospital Course Free Text/Narrative:: Discharge Summary Date of admission: 12/03/17 Date of discharge: 12/13/17 Admitting diagnosis: #1. Severe Parkinson's dementia #2. Dehydration #3. Acute kidney injury #4. Hyponatremia #5. Suspected influenza/pneumonia Discharge diagnoses: #1. Altered mental status secondary to end-stage Parkinson's dementia #2. Hyponatremia that has now resolved #3. Acute kidney injury resolved secondary to adequate hydration #4. Due to poor responsiveness and poor outlook family has decided to place the patient on comfort care, hospice is on board. Consultations: Hospice Procedures: None Hospitalization course: Vision was admitted secondary to altered mental status, chest congestion and fever. Patient had a severe history of Parkinson's disease dementia. According to the family he is nonverbal and not mobile at baseline but will eat when prompted however [facility] states that he has not been eating or drinking all that much lately. Patient remained nonverbal throughout the entire admission stay and difficult to arouse. Patient was determined to have gram-positive bacteremia, pneumonia, acute kidney injury, hypernatremia. Patient had blood cultures done and was placed on IV vancomycin, Levaquin as well meropenem and Tamiflu were started on the patient. Patient's acute kidney injury had resolved while in inpatient, as well as his bacteremia. Due to the continuing nature of the patient's symptoms in terms of his difficulty to be aroused despite sternal rub a family meeting was held several times towards end of the patient's stay in which it was finally determined that the patient would be switched over to comfort care/hospice. Afterwards hospice was consulted and appropriate plan was made with the family. And the patient was then subsequently discharged on comfort care measures over to [facility] with hospice to follow in an outpatient setting. Disposition on discharge: [facility] hospice/comfort care Condition on discharge: Unresponsive on hospice/comfort care Follow-up instructions: Hospice to follow up - Discharge Data Discharge Date: 12/13/17 Discharge Disposition: DC/Tfer to [facility] Condition: Fair - Patient Summary/Data Consults: Consultations 12/12/17 11:30 Consult to Hospice [CONS] Routine - Patient Instructions Diet: Regular Diet as Tolerated Activity: As Tolerated Driving: Do Not Drive Showering/Bathing: May Shower Wound/Incision Care: Keep Operative Site/Wound Site Clean and Dry - Discharge Plan Prescriptions/Med Rec: Bisacodyl [Dulcolax] 10 mg RECTAL BID PRN #7 supp PRN Reason: Constipation Home Medications: Home Meds Carboxymethylcellulose Sodium [Refresh Liquigel 1%] 1 drop EYEBOTH QID 12/03/17 [History] Bisacodyl [Dulcolax] 10 mg RECTAL BID PRN #7 supp 12/13/17 [Rx] Patient Handouts: Hypernatremia, [id number], Bisacodyl suppositories, Hospice , Dehydration, Elderly, [id number] Referrals: Nikhil Vásquez MD [Primary Care Provider] - - Discharge Summary/Plan Comment DC Time >30 min.: No - Patient Data Vitals - Most Recent: Last Vital Signs Temp 36.9 C 12/13/17 11:30 Pulse 58 L 12/13/17 11:30 Resp 18 12/13/17 11:30 BP 126/59 L 12/13/17 11:30 Pulse Ox 95 12/13/17 11:30 Weight - Most Recent: 83.9 kg Med Orders - Current: Current Medications Discontinued Medications Acetaminophen (Tylenol) 650 mg PO Q6H PRN PRN Reason: Pain Acetaminophen (Tylenol) 650 mg RECTAL Q6H PRN PRN Reason: Pain/Fever Last Admin: 12/05/17 06:09 Dose: 650 mg Albuterol/Ipratropium (Duoneb 3.0-0.5 Mg/3 Ml) 3 ml NEB ONETIME ONE Stop: 12/03/17 20:52 Last Admin: 12/03/17 21:33 Dose: 3 ml Albuterol/Ipratropium (Duoneb 3.0-0.5 Mg/3 Ml) 3 ml NEB Q6HRRT PRN PRN Reason: Shortness of Breath Last Admin: 12/05/17 06:09 Dose: 3 ml Artificial Tears (Refresh Plus 0.5%) 1 each EYEBOTH QID [facility] Last Admin: 12/13/17 11:24 Dose: 1 drop Bisacodyl (Dulcolax) 10 mg RECTAL ONETIME ONE Stop: 12/04/17 11:29 Last Admin: 12/04/17 13:58 Dose: 10 mg Bisacodyl (Dulcolax) Confirm Administered Dose 10 mg .ROUTE .STK-MED ONE Stop: 12/04/17 13:54 Last Admin: 12/04/17 16:16 Dose: Not Given Bisacodyl (Dulcolax) 10 mg RECTAL BID PRN PRN Reason: Constipation Last Admin: 12/12/17 14:44 Dose: 10 mg Calcium Carbonate/Glycine (Tums) 1,000 mg PO ONETIME ONE Stop: 12/10/17 06:07 Last Admin: 12/10/17 06:46 Dose: Not Given Carbidopa/Levodopa (Sinemet 25-100 Mg) 2 tab PO QAM [facility] Last Admin: 12/12/17 08:49 Dose: Not Given Carbidopa/Levodopa (Sinemet 25-100 Mg) 1.5 tab PO ASDIRECTED [facility] Carbidopa/Levodopa (Sinemet 25-100 Mg) 1.5 tab PO BID@1200,2100 [facility] Last Admin: 12/12/17 13:44 Dose: Not Given Citalopram Hydrobromide (Celexa) 10 mg PO DAILY [facility] Last Admin: 12/12/17 08:49 Dose: Not Given Donepezil HCl (Aricept) 5 mg PO DAILY [facility] Last Admin: 12/12/17 08:48 Dose: Not Given Donepezil HCl (Aricept) 10 mg PO BEDTIME [facility] Last Admin: 12/11/17 21:43 Dose: Not Given Heparin Sodium (Porcine) (Heparin Sodium) 5,000 units SUBCUT Q12HR [facility] Last Admin: 12/12/17 08:53 Dose: 5,000 units Sodium Chloride (Normal Saline) 1,000 mls @ 999 mls/hr IV STAT ONE Stop: 12/03/17 21:51 Last Admin: 12/04/17 00:06 Dose: Not Given Sodium Chloride (Normal Saline) 1,000 mls @ 100 mls/hr IV ASDIRECTED [facility] Last Infusion: 12/04/17 01:45 Dose: 100 mls/hr Levofloxacin/Dextrose 750 mg/ (Premix) 150 mls @ 100 mls/hr IV Q48H [facility] Last Infusion: 12/04/17 01:40 Dose: Infused Sodium Chloride (Sodium Chloride 0.45%) 1,000 mls @ 100 mls/hr IV ASDIRECTED [facility] Last Admin: 12/04/17 11:59 Dose: 100 mls/hr Vancomycin HCl 1.25 gm/ Sodium (Chloride) 500 mls @ 333.333 mls/hr IV Q24H [facility] Last Admin: 12/05/17 08:50 Dose: 333.333 mls/hr Levofloxacin/Dextrose 500 mg/ (Premix) 100 mls @ 100 mls/hr IV Q48H [facility] Last Admin: 12/05/17 22:34 Dose: 100 mls/hr Dextrose/Water (Dextrose 5% In Water) 1,000 mls @ 125 mls/hr IV ASDIRECTED [facility] Last Admin: 12/05/17 12:15 Dose: 100 mls/hr Vancomycin HCl 1.25 gm/ Sodium (Chloride) 250 mls @ 166.667 mls/hr IV Q24H [facility] Last Admin: 12/07/17 09:00 Dose: 166.667 mls/hr Meropenem 500 mg/ Sodium (Chloride) 100 mls @ 200 mls/hr IV Q12H [facility] Last Admin: 12/06/17 23:21 Dose: 200 mls/hr Potassium Chloride 30 meq/ (Dextrose/Water) 1,015 mls @ 100 mls/hr IV ASDIRECTED [facility] Last Admin: 12/06/17 06:47 Dose: 100 mls/hr Levofloxacin/Dextrose 750 mg/ (Premix) 150 mls @ 150 mls/hr IV Q48H [facility] Last Admin: 12/07/17 21:29 Dose: 150 mls/hr Potassium Chloride 10 meq/ (Dextrose/Water) 1,005 mls @ 125 mls/hr IV ASDIRECTED [facility] Last Admin: 12/06/17 23:20 Dose: 125 mls/hr Potassium Chloride 10 meq/ (Dextrose/Water) 1,005 mls @ 125 mls/hr IV Q8H [facility] Last Admin: 12/08/17 03:47 Dose: 125 mls/hr Sodium Chloride (Sodium Chloride 0.45%) 1,000 mls @ 100 mls/hr IV ASDIRECTED [facility] Last Infusion: 12/12/17 22:25 Dose: Infused Potassium Chloride/Dextrose/Sod Cl (D5 1/2 Ns W/ 20 Meq/L Kcl) 1,000 mls @ 100 mls/hr IV ASDIRECTED [facility] Last Admin: 12/13/17 08:37 Dose: 100 mls/hr Insulin Aspart (Novolog) 0 unit SUBCUT TIDAC [facility] PRN Reason: Protocol Last Admin: 12/12/17 12:08 Dose: Not Given Methylprednisolone Sodium Succinate (Solu-Medrol) 125 mg IVPUSH ONETIME ONE Stop: 12/03/17 20:52 Last Admin: 12/03/17 21:31 Dose: 125 mg Ondansetron HCl (Zofran) 4 mg IVPUSH Q4H PRN PRN Reason: Nausea Last Admin: 12/04/17 21:06 Dose: 4 mg Oseltamivir Phosphate (Tamiflu) 30 mg PO DAILY [facility] Oseltamivir Phosphate (Oseltamivir Phosphate) 30 mg PO DAILY [facility] Last Admin: 12/09/17 09:00 Dose: Not Given Namenda Xr 28 Mg 1 each PO DAILY [facility] Last Admin: 12/12/17 08:49 Dose: Not Given Vancomycin HCl (Pharmacy To Dose - Vancomycin) 1 dose .XX ASDIRECTED [facility] Wound Care/Dressing Products (Duoderm Cgf) 1 each TOP DAILY [facility] Last Admin: 12/10/17 09:37 Dose: 1 each Wound Care/Dressing Products (Duoderm Cgf) 1 each TOP ASDIRECTED PRN PRN Reason: Other *Q Meaningful Use (DIS) - VTE *Q VTE Criteria *Q: - Stroke *Q Stroke Criteria *Q: - AMI *Q AMI Criteria *Q:
== END 2017-12-13 13:00 | DRG 640 ==
LOC: MW.ED 20:46 → MW.MS 21:51
PROVIDERS: ADMIT Internal Medicine; ATTEND Internal Medicine
DX: R09.02 Hypoxemia (principal); E87.0 Hyperosmolality and hypernatremia; J15.9 Unspecified bacterial pneumonia; N17.9 Acute kidney failure, unspecified; R41.82 Altered mental status, unspecified; E86.0 Dehydration; G20 Parkinson's disease; F02.80 Dementia in other diseases classified elsewhere, unspecified severity, without behavioral disturbance, psychotic disturbance, mood disturbance, and anxiety; G30.9 Alzheimer's disease, unspecified; I10 Essential (primary) hypertension; E78.00 Pure hypercholesterolemia, unspecified; F32.9 Major depressive disorder, single episode, unspecified; E11.9 Type 2 diabetes mellitus without complications; Z51.5 Encounter for palliative care; Z88.0 Allergy status to penicillin; Z88.8 Allergy status to other drugs, medicaments and biological substances; Z79.899 Other long term (current) drug therapy
CPT/HCPCS: 36415; 36600; 70450; 71045; 80053; 82140; 82550; 82553; 82803; 83880; 83930; 84484; 85025; 85610; 87040 ×2; 87077; 87186; 93005; 94640; 96361; 96374; 99285; G0480; J2930; J7040; 80048; 80202; 80305; 81001; 82962; 83735; 83935; 87086; 87804; 99284; A9270-GY; J1644; J1815-GY; J1956; J2185; J2405; J3370; J3480; J7030; J7050; J7060